=== PATIENT | female | born 1995 | race Caucasian/White ===

== ENCOUNTER 2019-05-23 15:47 | Emergency (ER) | payer MEDICAID, OTHER, SELFPAY ==
[~2019-05-23] VITALS: Ht 160 cm; Wt 91.3 kg
[2019-05-23] MEDS ORDERED: ACET500C10 (15:53)
--- NOTE | 2019-05-23 17:02 | REP ---
Clinical: Right mid calf pain and swelling . Technique: James scale and color Doppler evaluation using linear high frequency transducer. Findings: Ultrasound examination of the right lower extremity deep venous structures from the common femoral vein to the popliteal vein demonstrates normal compressibility flow and wave patterns in response to respiration and augmentation. There is no evidence for deep venous thrombosis. Impression: No evidence for deep venous thrombosis. Electronically Signed by Jonathan Flores MD 05/23/2019 04:54 P
[2019-05-23 17:26] VITALS: BP 170/96
== END 2019-05-23 17:29 | disposition home or self-care (01) ==
LOC: M ED 15:47
DX: M79.604 Pain in right leg (principal); M79.605 Pain in left leg; Z88.1 Allergy status to other antibiotic agents; Z79.899 Other long term (current) drug therapy

== ENCOUNTER → 2019-10-29 | Outpatient (CLI) | payer MEDICAID, OTHER ==
[~2019-10-29] MED LIST: ACET500C10
[2019-10-29 11:26] LABS: BASO % 0.3 % (0.0-1.0); EOS # 0.2 10^3/uL (0.0-0.5); EOS % 1.8 % (0.0-3.0); HEMATOCRIT 42.6 % (36.0-47.0); LYMPH # 2.2 10^3/uL (1.5-5.0); LYMPH % 23.9 % (24.0-44.0); MEAN CORPUSCULAR HEMOGLOBIN 29.7 pg (27.0-33.0); MEAN CORPUSCULAR HGB CONC 32.9 g/dl (32.0-36.5); MEAN CORPUSCULAR VOLUME 90.3 fl (80.0-96.0); MONO # 0.8 10^3/uL (0.0-0.8); MONO % 8.9 % (0.0-5.0); NEUTROPHILS # 5.9 10^3/uL (1.5-8.5); NEUTROPHILS % 64.4 % (36.0-66.0); PLATELET COUNT, AUTOMATED 356 10^3/uL (150-450); RED BLOOD COUNT 4.72 10^6/uL (4.00-5.40); WHITE BLOOD COUNT 9.1 10^3/uL (4.0-10.0)
--- NOTE | 2019-10-29 11:40 | REP ---
REASON: Pain . PRIORS: None. FINDINGS: Three views of the thoracic spine were obtained. The disc spaces are symmetric and relatively well maintained. There is no acute fracture or destructive osseous lesion. Electronically Signed by Toño Mcdowell DO 10/29/2019 12:05 P
[2019-10-29 12:21] LABS: ALBUMIN 3.7 GM/DL (3.2-5.2); ALT/SGPT 39 U/L (12-78); BILIRUBIN,TOTAL 0.3 MG/DL (0.2-1.0); BLOOD UREA NITROGEN 14 MG/DL (7-18); CALCIUM LEVEL 8.8 MG/DL (8.5-10.1); CARBON DIOXIDE LEVEL 21 MEQ/L (21-32); CHLORIDE LEVEL 112 MEQ/L (98-107); CHOLESTEROL LEVEL 199 MG/DL (<200); CHOLESTEROL RISK RATIO 3.553 (<5); CREATININE FOR GFR 0.76 MG/DL (0.55-1.30); GLOMERULAR FILTRATION RATE > 60.0 (>60); GLUCOSE, FASTING 84 MG/DL (70-100); HDL CHOLESTEROL 56 MG/DL (>40); LDL CHOLESTEROL 123 MG/DL (<100); NON-HDL-C 143 MG/DL; POTASSIUM SERUM 4.1 MEQ/L (3.5-5.1); SODIUM LEVEL 139 MEQ/L (136-145); TOTAL PROTEIN 7.7 GM/DL (6.4-8.2); TRIGLYCERIDES LEVEL 102 MG/DL (<150)
== END ==
LOC: M LAB 10:55
PROVIDERS: ATTEND Physician Assistant
DX: M54.6 Pain in thoracic spine (principal); G93.2 Benign intracranial hypertension; D68.51 Activated protein C resistance; R10.84 Generalized abdominal pain; R19.5 Other fecal abnormalities; Z83.49 Family history of other endocrine, nutritional and metabolic diseases

== ENCOUNTER 2020-07-28 22:49 | Day surgery (SDC) | payer OTHER ==
[~2020-07-28] VITALS: Ht 160 cm; Wt 90.1 kg
[~2020-07-28 22:49] MED LIST changes: -ACET500C10; +ACET500C10 PO
[2020-07-29] MEDS ORDERED: NS 1,000 ML IV ONE (01:15)
[2020-07-29] MEDS ORDERED: KETOROLAC 30 MG/ML 1ML VIAL IV ONE (01:15)
[2020-07-29] MEDS ORDERED: ONDANSETRON 4MG/2ML VIAL IV ONE ×2 (01:15→06:30)
[2020-07-29 01:40] LABS: BASO # 0.1 10^3/uL (0.0-0.2); BASO % 0.3 % (0.0-1.0); EOS % 0.2 % (0.0-3.0); HEMATOCRIT 46.9 % (36.0-47.0); HEMOGLOBIN 14.7 g/dl (12.0-15.5); LYMPH # 1.9 10^3/uL (1.5-5.0); LYMPH % 9.9 % (24.0-44.0); MEAN CORPUSCULAR HEMOGLOBIN 28.4 pg (27.0-33.0); MEAN CORPUSCULAR HGB CONC 31.3 g/dl (32.0-36.5); MEAN CORPUSCULAR VOLUME 90.5 fl (80.0-96.0); MONO # 0.9 10^3/uL (0.0-0.8); MONO % 4.9 % (0.0-5.0); NEUTROPHILS # 16.1 10^3/uL (1.5-8.5); NEUTROPHILS % 84.3 % (36.0-66.0); PLATELET COUNT, AUTOMATED 397 10^3/uL (150-450); RED BLOOD COUNT 5.18 10^6/uL (4.00-5.40); WHITE BLOOD COUNT 19.1 10^3/uL (4.0-10.0)
[2020-07-29 02:07] LABS: ALBUMIN 4.4 GM/DL (3.2-5.2); BILIRUBIN,DIRECT 0.1 MG/DL (0.0-0.2); BILIRUBIN,TOTAL 0.6 MG/DL (0.2-1.0); TOTAL PROTEIN 8.7 GM/DL (6.4-8.2)
[2020-07-29] MEDS ORDERED: ISOVUE-370 76% 100ML VIAL As Ordered ONE (02:32)
--- NOTE | 2020-07-29 03:34 | REPVR ---
PROCEDURE INFORMATION: Exam: CT Abdomen And Pelvis With Contrast Exam date and time: 07/29/2020 1:11 AM Age: 24 years old Clinical indication: Abdominal pain; Localized; Right lower quadrant (rlq); Additional info: Rlq pain TECHNIQUE: Imaging protocol: Computed tomography of the abdomen and pelvis with intravenous contrast. Radiation optimization: All CT scans at this facility use at least one of these dose optimization techniques: automated exposure control; mA and/or kV adjustment per patient size (includes targeted exams where dose is matched to clinical indication); or iterative reconstruction. Contrast material: ISO; Contrast volume: 100 ml; Contrast route: INTRAVENOUS (IV); COMPARISON: No relevant prior studies available. FINDINGS: Liver: Normal. No mass. Gallbladder and bile ducts: Normal. No calcified stones. No ductal dilation. Pancreas: Normal. No ductal dilation. Spleen: Normal. No splenomegaly. Adrenal glands: Normal. No mass. Kidneys and ureters: Normal. No hydronephrosis. Stomach and bowel: Unremarkable. No obstruction. No mucosal thickening. Appendix: Fluid-filled distended mildly inflamed appendix. Intraperitoneal space: Trace free fluid in the pelvis. Vasculature: Unremarkable. No abdominal aortic aneurysm. Lymph nodes: Scattered subcentimeter nonspecific mesenteric lymph nodes. Urinary bladder: Unremarkable as visualized. Reproductive: Unremarkable as visualized. Bones/joints: Unremarkable. No acute fracture. Soft tissues: Small fat containing umbilical hernia. Foreign body in the subcutaneous fat along the lower back midline. IMPRESSION: Acute appendicitis. Electronically signed by: Jose Hansen On 07/29/2020 03:34:46 AM
[2020-07-29] MEDS ORDERED: PIPERACILLIN/TAZOBACTAM SOD 3.375 GM in D5W MINI-BAG PLUS 50 ML IV ONE (04:00)
[2020-07-29] MEDS ORDERED: NS 1,000 ML IV SCH (04:00)
[2020-07-29] MEDS ORDERED: MORPHINE 4 MG/ML 1ML VIAL/SYRINGE (J2270) IV PRN (06:30)
[2020-07-29] MEDS ORDERED: BUPIVACAINE HCL 0.25% 30ML VIAL As Ordered ONE (07:55)
[2020-07-29] MEDS ORDERED: fentaNYL 100 MCG/2 ML INJECTION (J3010) As Ordered ONE ×2 (07:55→10:48)
[2020-07-29] MEDS ORDERED: LIDOCAINE 2% 100MG/5ML SDV (FOR ANES.) As Ordered ONE (07:55)
[2020-07-29] MEDS ORDERED: MIDAZOLAM INJ 2MG/2ML VIAL (J2250 PER 1MG) As Ordered ONE (07:55)
[2020-07-29] MEDS ORDERED: ROCURONIUM BROMIDE 50 MG/5 ML VIAL As Ordered ONE (07:55)
[2020-07-29] MEDS ORDERED: propofoL 200 MG/20 ML VIAL As Ordered ONE (07:55)
[2020-07-29] MEDS ORDERED: LIDOCAINE 1% SDV 30ML VIAL As Ordered ONE (07:55)
[2020-07-29] MEDS ORDERED: ONDANSETRON 4MG/2ML VIAL As Ordered ONE (07:55)
[2020-07-29] MEDS ORDERED: dexameTHASONE 4 MG/ML 1ML VIAL (J1100 PER 1MG) As Ordered ONE (07:55)
[2020-07-29] MEDS ORDERED: ONDANSETRON 4MG/2ML VIAL IV PRN ×3 (08:15→12:30)
[2020-07-29] MEDS ORDERED: MORPHINE 2 MG/ML 1ML VIAL (J2270) IV PRN (08:15)
--- NOTE | 2020-07-29 08:23 | HPEPDOC ---
General Surgery H&P Date of Admission Jul 29, 2020 Attending Physician: RAMEZ BINGHAM MD History and Physical CHIEF COMPLAINT: abdominal pain HISTORY OF PRESENT ILLNESS: Patient presents to the ED with complaints of sudden onset of right sided abdominal pain at about 1030 pm last night. Pain started at about 9 PM. She was previously well. She reports pain starting after periumbilical area later on localizing on the right lower quadrant area, sharp in nature, constant, worse with moving, taking deep breaths. Associated with rates of nausea no vomiting. She also had one loose stool. No fevers or chills being reported. No sick contacts. She does presented herself to the emergency room ALLERGIES: Please see below. HOME MEDICATIONS: Please see below. PAST MEDICAL HISTORY: 1. h/o pseudotumor cerebri secondary to adverse reaction for minocycline for acne PAST SURGICAL HISTORY: 1. prior lumboperitoneal shunt and subsequent removal PERSONAL/SOCIAL HISTORY: reports smoking REVIEW OF SYSTEMS: GENERAL: Patient previously well prior to starting her symptoms last night.. HEENT: Denies blurring of vision. NECK: Denies neck pain. CARDIOVASCULAR: Denies chest pain and palpitations. MUSCULOSKELETAL: Reports mild back pain. SKIN: Denies rash. NEUROLOGIC: And history of increasing headaches, migraines from pseudotumor cerebri. PSYCHIATRIC: Denies anxiety and depression. 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 HEART: Denies any chest pains, palpitations, paroxysmal dyspnea, orthopnea. PULMONARY: Denies chronic cough, dyspnea and wheezing. GASTROINTESTINAL: See HPI. GENITOURINARY: Denies dysuria, frequency, hematuria and nocturia. ENDOCRINE: Denies polydipsia, polyphagia, polyuria, heat or cold intolerance. INFECTIOUS: Denies any recent upper respiratory tract infection, UTI, need for use of antibiotics. NUTRITION: Reports good appetite. PHYSICAL EXAMINATION: VITAL SIGNS: Please see below. GENERAL APPEARANCE: Patient seen laying in bed, relatively comfortable. She is awake alert and oriented. She is cooperative. HEENT: Normocephalic, atraumatic. Cogswell palpebral conjunctivae. Anicteric sclerae. Lips moist. CHEST: No chest wall abnormalities. Normal respiratory motion/effort. NECK: Supple. No thyromegaly. No lymphadenopathies. LUNGS: Lung sounds are clear to auscultation bilaterally. No wheezing appreciated. HEART: No chest wall abnormalities. Heart rate and rhythm are regular with no murmurs. ABDOMEN: Mildly obese abdomen, nondistended. Should prior incisions from her lumboperitoneal shunt on the left upper quadrant area. No umbilical or groin herniations. Tender to palpation only on deep palpation over the right lower quadrant area with mild guarding. SKIN: Warm and dry. EXTREMITIES: No deformities, edema. NEUROLOGICAL: Patient is awake alert and oriented, moves all extremities equally. ANCILLARIES: . LABORATORY DATA: Please see below. MICROBIOLOGY: Please see below. IMAGING: Ct abdomen and pelvis fluid filled appendix, acute appendicitis IMPRESSION AND PLAN: Acute appendicitis with localized peritonitis Patient's history, symptoms and physical examination consistent with acute appendicitis. She did have an elevated white count of 19,000. Her CT is consistent with noncomplicated acute appendicitis. We will bring her to the operating room for a laparoscopic appendectomy. I discussed with the patient the details of the proposed procedure, the benefits of performing the procedure, the most common risks on doing the procedure. This may include risks of general anesthesia, risks of bleeding, injury to nearby bowels and blood vessels, subsequent abscess formation, hernia formation. She tells me she has factor V laden trait but has no prior history of DVT. I have given her a chance to ask questions, voice out concerns. Patient has agreed to proceed Vital Signs Vital Signs Date Time Temp Pulse Resp B/P (MAP) Pulse Ox O2 Delivery O2 Flow Rate FiO2 07/29/20 06:38 18 07/29/20 02:37 07/29/20 02:00 97.7 88 97 07/28/20 22:50 Room Air I&Os I&O- Last 24 Hours up to 6 AM 07/29/20 06:00 Intake Total 1000 ml Balance 1000 ml Laboratory Data Labs 24H Laboratory Tests 2 07/29/20 01:58: POC Glucose (Misc Panel) 87, POC Sodium (Misc Panel) 139, POC Potassium (Misc Panel) 3.6, POC Chloride (Misc Panel) 110H, POC Total CO2 (Misc Panel) 18.0L, POC Blood Urea Nitrogen (Misc Panel 13, POC Ionized Calcium (Misc Panel) 4.9, POC Creatinine (Misc Panel) 0.6, POC Hematocrit (Misc Panel) 41.0 07/29/20 02:02: POC Beta HCG, Quantitative < 5.0 Microbiology Microbiology 07/29/20 Respiratory Virus Panel (PCR) ([facility]) - Final, Complete Home Medications Scheduled Acetazolamide (Acetazolamide ER) 500 Mg Capsule.er, 500 MG PO QPM, (Reported) Allergies Coded Allergies: minocycline (Verified Adverse Reaction, Severe, 05/23/19) spinal fluid stopped draining A-FIB/CHADSVASC A-FIB History Current/History of A-Fib/PAF?: No Current PO Anticoag Therapy: No RAMEZ BINGHAM MD Jul 29, 2020 08:23
[2020-07-29] MEDS: AMPICILLIN SOD/SULBACTAM SOD 3 GM in D5W MINI-BAG PLUS 100 ML IV SCH ×3 (10:46→23:20)
[2020-07-29] MEDS ORDERED: SUGAMMADEX SODIUM 500 MG/5 ML VIAL (BRIDION) As Ordered ONE (11:16)
[2020-07-29] MEDS ORDERED: ACETAMINOPHEN 1000MG 100ML IV BTL (OFIRMEV) (J0131 PER 10MG) As Ordered ONE (11:39)
[2020-07-29] MEDS ORDERED: OXYC-517 PO (11:53)
[2020-07-29] MEDS ORDERED: oxyCODONE 5MG TAB PO PRN (12:00)
[2020-07-29] MEDS ORDERED: fentaNYL 100 MCG/2 ML INJECTION (J3010) IV PRN (12:00)
[2020-07-29] MEDS ORDERED: LR 1,000 ML IV SCH (12:00)
[2020-07-29 13:35] VITALS: BP 108/65
[2020-07-29] MEDS: PANTOPRAZOLE 40MG VIAL (C9113 PER 1) IV SCH (13:46)
[2020-07-29] MEDS: LR 1,000 ML IV SCH ×2 (13:46→18:04)
[2020-07-29 14:35] VITALS: BP 106/64
[2020-07-29] MEDS: KETOROLAC 30 MG/ML 1ML VIAL IV PRN ×2 (14:53→23:19)
[2020-07-29] MEDS: PERCOCET 5MG/325MG TAB PO PRN ×2 (17:42→21:44)
[2020-07-29 18:00] VITALS: BP 108/61
[2020-07-29 22:00] VITALS: BP 107/60
[2020-07-30] MEDS: PERCOCET 5MG/325MG TAB PO PRN (03:03)
[2020-07-30] MEDS: LR 1,000 ML IV SCH (03:03)
[2020-07-30] MEDS: AMPICILLIN SOD/SULBACTAM SOD 3 GM in D5W MINI-BAG PLUS 100 ML IV SCH (05:10)
[2020-07-30 06:00] VITALS: BP 109/52
[2020-07-30] MEDS: PANTOPRAZOLE 40MG VIAL (C9113 PER 1) IV SCH (08:40)
--- NOTE | 2020-07-30 08:56 | ROOPDOC ---
[facility] [place] Operation DATE OF PROCEDURE: 07/29/20 PREPROCEDURE DIAGNOSES: acute appendicitis. POSTPROCEDURE DIAGNOSES: acute appendicitis. PROCEDURE: Laparoscopic appendectomy. SURGEON: Freddie Mckeon MD INSTRUCTIONAL COACH: ANESTHESIA: General Anesthesia. ESTIMATED BLOOD LOSS: Approximately 10 mL. COMPLICATIONS: slight blood tinged oral mucosa after extubation. REMARKS: . PROCEDURE NOTE: fluid filled, tensely distended, mildly thickened appendix, no perforation, necrosis DESCRIPTION OF PROCEDURE: Patient has been given a dose of Zosyn perioperatively.Patient was brought to the operating room, placed supine on the table. Sequential compression device placed for DVT prophylaxis. General endotracheal anesthesia started. The abdomen prepped and draped in usual sterile fashion. After a surgical timeout, we began our surgery Entry into the abdomen done through an incision above the umbilicus. Veress needle inserted on a controlled fashion. Intra-abdominal placement confirmed with saline drop technique. CO2 insufflation started to a pressure of 15 mmHg. Using the same incision a 5 mm port was placed under direct vision of laparoscope. Insertion site was inspected for injury and none was found. He was placed on a Trendelenburg position the right side tilted to about 30 to allow for better visualization of the appendix. 2 working ports were placed at the suprapubic area( 8 mm) and left lower quadrant area (5 mm) under direct vision. Operative findings: The appendix is distended, mildly thickened slightly venous congested but otherwise healthy, no necrosis. No perforation. The appendix was located, This was grasped to pull the base of the appendix into view. The mesoappendix was divided using Harmonic scalpel down to the base. A Vicryl Endoloop was placed to ligate the appendix at its base then divided with a Harmonic Scalpel the stump cauterized. Stump appears healthy. Appendix was then delivered into an Endo Catch bag. After re-insufflation the surgical site was inspected for hemostasis, the visualized fluid collections irrigated and suctioned off until clear return. Surrounding areas of the abdomen and inspected for fluid collections or signs of injury. The abdomen was deflated. All ports removed. The umbilical fascial defect repaired with 0 Vicryl in a mattress fashion. All skin incisions closed with 4-0 Monocryl in a subcuticular fashion. Steri-Strips and gauze dressing used for wound coverage. Patient was promptly awake and extubated and brought to recovery room stable. All counts of sponges and instruments verified to be correct. FREDDIE MCKEON MD Jul 30, 2020 08:56
== END 2020-07-30 11:35 | disposition home or self-care (01) ==
LOC: M ED 22:49 → M SDC 22:50 → M MSPAV 07-29 13:22 → M SDC 07-30 11:35
PROVIDERS: ATTEND Surgery
DX: K35.890 Other acute appendicitis without perforation or gangrene (principal); Z88.8 Allergy status to other drugs, medicaments and biological substances; F17.218 Nicotine dependence, cigarettes, with other nicotine-induced disorders
CPT/HCPCS: 44970; 80047; 80076; 81001; 83690; 84702; 85025; 87486; 87581; 87633; 87798; 88304; 96361; 96365; 96366; 96375; 96376; 99284; C9113; J1100; J1885; J2250; J2270; J2405; J2543; J3010; Q9967

== ENCOUNTER 2020-08-02 16:46 | Emergency (ER) | payer OTHER ==
[~2020-08-02] VITALS: Ht 160 cm; Wt 91.2 kg
[~2020-08-02 16:46] MED LIST changes: +OXYC-517 PO
--- OUTSIDE RECORDS SUMMARY | 2020-08-02 16:52 | CCD ---
Author Author [facility] Organization [facility] Address Unknown Phone Unavailable Care Team Providers Care Retail Merchandising Coordinator Name Role Phone GODINEZ, JUSTYNA MERRITT RPA-C Unavailable Unavailable GODINEZ, JUSTYNA MERRITT RPA-C Unavailable Unavailable GODINEZ, JUSTYNA MERRITT RPA-C Unavailable Unavailable GODINEZ, JUSTYNA MERRITT RPA-C Unavailable Unavailable GODINEZ, JUSTYNA MERRITT RPA-C Unavailable Unavailable GODINEZ, JUSTYNA MERRITT RPA-C Unavailable Unavailable GODINEZ, JUSTYNA MERRITT RPA-C Unavailable Unavailable GODINEZ, JUSTYNA MERRITT RPA-C Unavailable Unavailable GODINEZ, JUSTYNA MERRITT RPA-C Unavailable Unavailable GODINEZ, JUSTYNA MERRITT RPA-C Unavailable Unavailable GODINEZ, JUSTYNA MERRITT RPA-C Unavailable Unavailable GODINEZ, JUSTYNA MERRITT RPA-C Unavailable Unavailable GODINEZ, JUSTYNA MERRITT RPA-C Unavailable Unavailable GODINEZ, JUSTYNA MERRITT RPA-C Unavailable Unavailable GODINEZ, JUSTYNA MERRITT RPA-C Unavailable Unavailable GODINEZ, JUSTYNA MERRITT RPA-C Unavailable Unavailable GODINEZ, JUSTYNA MERRITT RPA-C Unavailable Unavailable GODINEZ, JUSTYNA MERRITT RPA-C Unavailable Unavailable GODINEZ, JUSTYNA MERRITT RPA-C Unavailable Unavailable GODINEZ, JUSTYNA MERRITT RPA-C Unavailable Unavailable GODINEZ, JUSTYNA MERRITT RPA-C Unavailable Unavailable GODINEZ, JUSTYNA MERRITT RPA-C Unavailable Unavailable GODINEZ, JUSTYNA MERRITT RPA-C Unavailable Unavailable GODINEZ, JUSTYNA MERRITT RPA-C Unavailable Unavailable GODINEZ, JUSTYNA MERRITT RPA-C Unavailable Unavailable GODINEZ, JUSTYNA MERRITT RPA-C Unavailable Unavailable GODINEZ, JUSTYNA MERRITT RPA-C Unavailable Unavailable GODINEZ, JUSTYNA MERRITT RPA-C Unavailable Unavailable GODINEZ, JUSTYNA MERRITT RPA-C Unavailable Unavailable GODINEZ, JUSTYNA MERRITT RPA-C Unavailable Unavailable GODINEZ, JUSTYNA MERRITT RPA-C Unavailable Unavailable GODINEZ, JUSTYNA MERRITT RPA-C Unavailable Unavailable GODINEZ, JUSTYNA MERRITT RPA-C Unavailable Unavailable GODINEZ, JUSTYNA MERRITT RPA-C Unavailable Unavailable GODINEZ, JUSTYNA MERRITT RPA-C Unavailable Unavailable GODINEZ, JUSTYNA MERRITT RPA-C Unavailable Unavailable GODINEZ, JUSTYNA MERRITT RPA-C Unavailable Unavailable GODINEZ, JUSTYNA MERRITT RPA-C Unavailable Unavailable Pedro, A Mayra MEDICAL PRACTITIONERS Unavailable Unavailable Pedro, A Mayra [employer]ACTITION[employer] Unavailable Unavailable Pedro, A [facility] [employer]ACTITION[employer] Unavailable Unavailable Pedro, A Mayra [employer]ACTITION[employer] Unavailable Unavailable Pedro, A [facility]ra [employer]ACTITION[employer] Unavailable Unavailable Pedro, A Mayra [employer]ACTITION[employer] Unavailable Unavailable Pedro, A Mayra [employer]ACTITION[employer] Unavailable Unavailable Pedro, A Mayra [employer] PRACTITIONERS Unavailable Unavailable Pedro, A [facility]ra [employer]ACTITIONERS Unavailable Unavailable Pedro, A Mayra [employer]ACTITION[employer] Unavailable Unavailable Pedro, A Mayra [employer]ICAL PRACTITIONERS Unavailable Unavailable Pedro, A Mayra [employer]ICAL PRACTITIONERS Unavailable Unavailable Pedro, A Mayra [employer] PRACTITIONERS Unavailable Unavailable Pedro, A Mayra [employer]ACTITIONERS Unavailable Unavailable Pedro, A Mayra [employer]ACTITION[employer] Unavailable Unavailable Pedro, A Mayra [employer]ACTITION[employer] Unavailable Unavailable Pedro, A Mayra [employer]ACTITIONERS Unavailable Unavailable Pedro, A [facility]ra [employer]ACTITION[employer] Unavailable Unavailable Pedro, A Mayra [employer]ACTITION[employer] Unavailable Unavailable Pedro, A Mayra [employer]ACTITION[employer] Unavailable Unavailable Pedro, A Mayra [employer]ACTITION[employer] Unavailable Unavailable Pedro, A Mayra [employer] PRACTITION[employer] Unavailable Unavailable Pedro, A Mayra [employer]ACTITION[employer] Unavailable Unavailable Pedro, A [facility] [employer] Unavailable Unavailable Pedro, A [facility]ra [employer] Unavailable Unavailable Pedro, A [facility] [employer] Unavailable Unavailable Pedro, A [facility] [employer] Unavailable Unavailable Jesusita MENDOZA Unavailable Unavailable Pedro, Mayra [facility] [employer] MEDICAL PRACTITIONERS Unavailable Unavailable JONATHANAnderson FONTANAJesusita . Unavailable Unavailable [facility], RFROST GODINEZ PA MERRITT Unavailable Unavailable Guiles, Kayli Unavailable Unavailable Rocha, Navreet MBBS Unavailable Rocha, Navreet MBBS Unavailable Re-disclosure Warning The records that you are about to access may contain information from federally-assisted alcohol or drug abuse programs. If such information is present, then the following federally mandated warning applies: This information has been disclosed to you from records protected by federal confidentiality rules (42 CFR part 2). The federal rules prohibit you from making any further disclosure of this information unless further disclosure is expressly permitted by the written consent of the person to whom it pertains or as otherwise permitted by 42 CFR part 2. A general authorization for the release of medical or other information is NOT sufficient for this purpose. The Federal rules restrict any use of the information to criminally investigate or prosecute any alcohol or drug abuse patient.The records that you are about to access may contain highly sensitive health information, the redisclosure of which is protected by Article 27-F of the [facility] Public Health law. If you continue you may have access to information: Regarding HIV / AIDS; Provided by facilities licensed or operated by the [facility] Office of Mental Health; or Provided by the [facility] Office for People With Developmental Disabilities. If such information is present, then the following [facility] mandated warning applies: This information has been disclosed to you from confidential records which are protected by state law. State law prohibits you from making any further disclosure of this information without the specific written consent of the person to whom it pertains, or as otherwise permitted by law. Any unauthorized further disclosure in violation of state law may result in a fine or long-term sentence or both. A general authorization for the release of medical or other information is NOT sufficient authorization for further disc losure. Allergies and Adverse Reactions Type Description Substance Reaction Status Data Source(s ) Drug allergy MINOCYCLINE HCL Minocycline 100 MG Oral Capsule CSF re tention SV [facility] Miscellaneous allergy SEASONAL SEASONAL [facility] Family History Family Member Name Family Member Gender Family Member Status Date o f Status Description Data Source(s) Unknown Male Diagnosis 01/13/2018 12:00:00 AM EDT [facility] ([employer] [facility]) Encounters Encounter Providers Location Date Indications Data Source(s ) Outpatient Referrer: MICAH MENDOZA 06/16/2020 12:00:00 A M [facility] Outpatient Attender: Destiny TOSCANO [id number] 10/2019 12:00:00 AM EDT - 03/24/2020 03:47:07 PM EDT Benign intracranial hypertension [facility] Benign intracranial hypertension [facility]patient [facility] 02/14/2020 05:16:00 P M EDT [facility]patient [facility]: [facility] 02/14/2020 05:1 5:59 PM EDT [facility] Outpatient Att[facility]: [facility] 01/11/2020 01:13:00 P M EDT [facility] Outpatient Att[facility]: [facility] 12/02/2019 03:1 2:01 PM EDT [facility] Outpatient Attender: [facility] 12/02/2019 02:15:01 P M EDT [facility] Outpatient Attender: WILMA DILLON 12/02/2019 02:14:00 P M EDT [facility] Outpatient Attender: WILMA DILLON 11/25/2019 11:25:00 A M EDT [facility] Outpatient 11/24/2019 06:24:00 AM EDT [facility] Outpatient Attender: MERRITT [facility]AR[facility]AS [facility] 11/18/2019 03:02:00 PM EDT [facility] 03:01:01 PM EDT [facility] 10/20 10:02:01 AM EDT [facility] Outpatient Attender: SCOOBY [facility] 10/20 02:35:02 PM EDT [facility] Outpatient Attender: MERRITT FARIAS [facility] 11/09/2019 02:35:00 PM EDT [facility] Outpatient Attender: SCOOBY [facility] 10/19 04:29:00 PM EDT [facility] Outpatient Attender: SOCOBY [facility] 10/19 04:27:01 PM EDT [facility] Outpatient Attender: SCOOBY [facility] 10/19 04:12:01 PM EDT [facility] Outpatient Attender: SCOOBY ROS[facility]IN [facility] 09/20 03:50:00 PM EDT [facility] Outpatient Attender: MERRITT FARIAS [facility] 10/16/2019 12:00:40 AM EDT [facility] Outpatient Attender: MERRITT F[facility]AS [facility] 10/15/2019 04:22:02 PM EDT [facility] Outpatient Attender: CURRY PATEL . 09/14/2019 12:00:00 AM [facility] Outpatient Attender: Kayli WILSON 06/23/2019 02:05:00 PM ES [facility] Out[facility] 06/20/2019 03:19:[facility] Medications Medication Brand Name Start Date Product Form Dose Route Admi nistrative Instructions Pharmacy Instructions Status Indications Reaction Description Data Source(s) 12 HR Acetazolamide 500 MG Extended Rele ase Oral Capsule acetaZOLAMIDE ER 500 MG Oral Capsule Extended Release 12 Hour (DIAMOX) acetaZOLAMIDE ER 500 MG Oral Capsule Extended Release 12 Hour (DIAMOX) 03/24/2020 12:00:00 AM EDT 500 mg Oral active Take 1 capsule by mo [facility] every evening [facility] 12 HR Acetazolamide 500 MG Extended Rele ase Oral Capsule acetaZOLAMIDE ER 500 MG Oral Capsule Extended Release 12 Hour (DIAMOX) acetaZOLAMIDE ER 500 MG Oral Capsule Extended Release 12 Hour (DIAMOX) 02/21/2020 12:00:00 AM EDT 500 mg Oral aborted Take 1 capsule by mo [facility] every evening [facility] Insurance Providers Payer name Policy type / Coverage type Policy ID Covered green party ID Covered green party's relationship to raphael Policy Raphael Plan Information NINO [id number] SP [id number] NINO I [id number] Self [id number] [place] [id number] S [id number] Medicaid S [id number] S [id number] Managed Care Nino P [id number] S [id number] Medicaid Dental S [id number] S [id number] MEDICAID [id number] SP [id number] Medicaid Dental P [id number] S [id number] SELF PAY O [id number] S [id number] SELF PAY ONLY [id number] SP [id number] NINO [id number] SP [id number] NINO MEDICAID [id number] Joselin 7 [id number] NINO MEDICAID PI PI DENTAL DENTAQUEST CHRISTO [id number] A [id number] Nino [id number] Self [id number] Problems, Conditions, and Diagnoses Code Display Name Description Problem Type Effective Dates Data Source(s) E55.9 Vitamin D deficiency, unspecified Vitamin D deficiency , unspecified 02/14/2020 05:15:38 PM EDT [facility] 724.1 Acute thoracic back pain Acute thoracic back pain 11/18/2019 03:00:20 PM EDT [facility] G54.0 Brachial plexus disorders Left thoracic outlet syndrom e 11/18/2019 03:00:20 PM EDT [facility] 348.2 Benign intracranial hypertension Benign intracranial h ypertension 10/15/2019 04:20:13 PM EDT [facility] 289.81 Factor V Leiden mutation Factor V Leiden mutation 10/15/2019 04:20:13 PM EDT [facility] 724.1 Pain in thoracic spine Pain in thoracic spine 10/15/2019 04:20:13 PM EDT [facility] V18.19 FH: Thyroid disorder FH: Thyroid disorder 10/14 04:20:13 PM EDT [facility] R10.84 Generalized abdominal pain Generalized abdominal pain 10/15/2019 04:20:13 PM EDT [facility] R19.5 Other fecal abnormalities Soft stool 10/15/2019 04:20:13 PM EDT [facility] Results ID Date Data Source [id number] 07/29/2020 04:40:00 AM EST [facility] Name Value Range Interpretation Code Description Data Tatum rce(s) Supporting Document(s) SARS-CoV-2 (COVID 19) NEGATIVE - SARS-CoV-2 (COVID19) [facility] This lab was ordered by [facility] a nd reported by [facility]. ID Date Data Source [id number] 06/17/2020 12:00:00 AM EST [facility] Name Value Range Interpretation Code Description Data Tatum rce(s) Supporting Document(s) SARS-CoV2 Rapid Antigen [facility] This lab was ordered by [facility] and reported by [facility]. ID Date Data Source [id number] 04/17/2020 01:45:21 PM EDT [facility] Name Value Range Interpretation Code Description Data Tatum rce(s) Supporting Document(s) Progress Note [facility] GPJJSd7eVgUCUgLm12/HBZcoFCLxo0TrVRsaEJz6BRkpVHVkP7MuMPW4oV3mFDP5SJeZOxUtKmPlWVX7 lbm [file] ICAgICAgICAgICAgICAgICAgICAgICAgICAgICAgIC AgICAgICAgICAgICAgICAgICAgICAgICAgICAgICAgICAgICAgICAgICAgICAgICAgICAgICAgICAgDQ ogICAgICAgICAgICAgICAgICAgICAgICAgICAgICAgICAgICAgICAgICAgICAgICAgICAgICAgICAgIC AgICAgICAgICAgICAgICAgICAgICAgICAgICAgICAg ICAgICAgICAgDQogICAgICAgICAgICAgICAgICAgICAgICAgICAgICAgICAgICAgICAgICAgICAgICAg ICAgICAgICAgICAgICAgICAgICAgICAgICAgICAgICAgICAgICAgICAgICAgICAgICAgDQogICAgICAg ICAgICAgICAgICAgICAgICAgICAgICAgICAgICAgIC AgICAgICAgICAgICAgICAgICAgICAgICAgICAgICAgICAgICAgICAgICAgICAgICAgICAgICAgICAgIC AgDQogICAgICAgICAgICAgICAgICAgICAgICAgICAgICAgICAgICAgICAgICAgICAgICAgICAgICAgIC AgICAgICAgICAgICAgICAgICAgICAgICAgICAgICAg ICAgICAgICAgICAgDQogICAgICAgICAgICAgICAgICAgICAgICAgICAgICAgICAgICAgICAgICAgICAg ICAgICAgICAgICAgICAgICAgICAgICAgICAgICAgICAgICAgICAgICAgICAgICAgICAgICAgDQogICAg ICAgICAgICAgICAgICAgICAgICAgICAgICAgICAgIC AgICAgICAgICAgICAgICAgICAgICAgICAgICAgICAgICAgICAgICAgICAgICAgICAgICAgICAgICAgIC AgICAgDQogICAgICAgICAgICAgICAgICAgICAgICAgICAgICAgICAgICAgICAgICAgICAgICAgICAgIC AgICAgICAgICAgICAgICAgICAgICAgICAgICAgICAg ICAgICAgICAgICAgICAgDQogICAgICAgICAgICAgICAgICAgICAgICAgICAgICAgICAgICAgICAgICAg ICAgICAgICAgICAgICAgICAgICAgICAgICAgICAgICAgICAgICAgICAgICAgICAgICAgICAgICAgDQog ICAgICAgICAgICAgICAgICAgICAgICAgICAgICAgIC AgICAgICAgICAgICAgICAgICAgICAgICAgICAgICAgICAgICAgICAgICAgICAgICAgICAgICAgICAgIC TmUMMxCNBtBXe4E4zaBCQxZALoIA8qRMf9An0+ZJpHWaDzJJU9biJlvA8ZVR0mz0JqUAdcESPei3TgZI z7ZS5XHJAzBVemQI0TWZixqk6OWNIoBKTjeITWg5zx WhHjJTS2MNYhJmwvCU8NUPFsF5qvxtFiWZRvWEZPZWnzLBRXTDizDNJNVRNiKYHaMyUsOyAtVPUkVCRo AYOHJH3YDgPiU9GynG66EJXOTy9+OMkpnmHsSixOSoIrQSXyi2OrJZd2RY5VRVDgOajod8HjHfKnZZLQ VRudNY5JIKA5WMPpYSKsCj0PKNClH900onPkQC0NQl 2XFcSiMS3sfa0AQpBzQIEwZplMIlk4RNkvGL1VcHYgKMnClh6vtgFcvkUCj2WdlbFjtMGIPOQcKTG0TY ibaZJeKS2QYpQoXJGtJK25IuEaVjKdBSA7AHSfWQ0pJTpsYV4NXXH5XKjxMYEzKHEzH9tIRdZaXBXaMU KpmJsfDJ2UKxDiK9MlwhNmnSBhIaVdKMWVNo7+DQpl iwYaMuyAXeY9HFIsm0NjYOs3GC6XDBKgTMrpOD2IPTSsdS6sWDjqBW7SHpDkQYUrLXJNHxXlK90zzZCp LIf9P2JuApKfGGTkDwkmBDVcVXobOpVvIPQmRfYgCJssNW4+ID4+HCowAJ0UBDtjfqJeRNKvMy4ISEKc HKLrDN7uEHXoYQDtM1Q6sDzxHDUDEuJuD2zqrygtMY 4fIJNvQ699fTliyeUnNNKlTBBbWq8LAQCfCJE1PSXrgSEtEwMiPYFCTZpvRH0DsQXjAXZ1fB7hKTooHZ OrYRRiU7hMGqPaqIfwIG61oNpxaoHbgRXgASy+Wg2BGY2ze0EyRCi6rpLkEDmrGJK4ZBuoTQMxQWPjXK OpBSQ3OMH1YLYRCtDgGXIlFNScHRhnQCMtCRTftv2P YOCtHLSrLBS1SzQdKFUoFULaPSuiKRVlLIW7KWI9NGItCILjFJ6WUaEiYESkUICzKNcbPWJaXMIggr5F QRHcJZQlNIQ4DUMzQMWdJAVnNGtxYBFcSWM5ImrdKFQxVMZhVL6VJgZhPRDiZGdmUuydRYKhVDYgwe0U FVBaIHScQpQgOxJzDZQqQJQhEZbaLPQfWJX6VEB6IA MdZIScJC8FKdUfJKTgQDq6XcVlKTVtZAIluh1PYJMtPKAcHnM9IoMaRYRhDQLzQApoUEMwGOBySAYuLA DtXKNxCA7TLjQbVNMoMXL1TsFaCKVyQXVwpc1JRQAjFAOoAtulCZZrOFAfKKLmSMowNILoJUO0Gln4RE WpVQOhCK3WYzLlTRBlJUl4ECNkTCFfYGFbom0GKHDz HGBjFAt4GYYxAMGiRVIqTWdbPUNeMNB4FMA1PJOjWGXkTS5STfGqYFWkGAfoICZyJTJeQHLofa6ZCFAa JUAoVGJbLTEzELJfBYLvLIfaJWImICDqVGBlUOHpMNRpHH5CPbMaBLIhFwL8ZIQaUQXhBJQuei8CNJAe RRAmCwRiKFVlXSQhZACzZZquNGGbLKBfYuO9RYKgCE XqXF0MOcVgLBOsCdF6ITSgLDWhXSJvwo8TIVOoNFFbThbxERDuVABdQIKwERimCKMiRQOyLHNqHZQfFG HqYW2QLtMrFBKoLcO5CCOqCFMzOLYafs1WGBMwTEInJOV1YzClUJCqGUGfQCmiYJUgOFV6WtOsIOWoDU UzNF8KWhShSJZrNgI7SpbwFPIjXEArni5XYNZcCUWd GhU1HFRgBPZiCSWlPTicKAZuNZD9YgH3UPMwTOIzOS3OIbXePPHpAcBcIdliAKLkGFXylh4WrNUdvRvo hv9NENoHAj4McFbzTTH6KQqeFo7sdRQrSWGdIDEUTw2BboOsBYXxUCFUPDtnVXOzKPYzALUxDXM6CmAt UJOfX1S6ExAbDePeUyBrCwtfKfN7YmG3InCgOWM3OT teFRG2OoVaStv2T7QtIBNcL2BbPQDlYWD+GR1mONr+Rs9Jc1QsvvR2rlNnVQzoHsYwYD6BYOILG6AGXk == ID Date Data Source [id number] 12/02/2019 02:35:17 PM EDT [facility] Measurements & CalculationsHeight: 63 inches (5 ft. 3 in.) 160.02 cm Weight: 208 pounds 4 oz. 94.66 kg Body Mass Index (BMI): 37.02BMI Interpretation: ObeseBody Surface Area (BSA): 1.97Weight Management Education Done (Nutrition/Physical Activity)Vital SignsTemperature: 99.2F tympanic Pulse Rate: 81 beats/minuteRespi ratory Rate: 18 respirations/minuteBlood Pressure: 117/87 left arm sitting automaticO2 Saturation: 95% room airVital Signs performed by: Jesus Alberto Atwood MA, December 02, 2019 2:52 PMInitial Intake Information From: patientRoom #: 14Infectious Disease / Travel ScreeningRecent travel for you or any close contacts? NoHave you had any close contact with anyone diagnosed with or under investigation for COVID-19 (coronavirus)? NoFever? NoRespiratory symptoms: cough, cold, congestion, shortness of breath, difficulty breathing? NoLoss of smell? NoLoss of taste? NoSmoking, Tobacco, Vaping or Smoke Exposure StatusSmoke Status: never smokerTobacco Use: NoDo you vape? NoPassive Smoke Exposure: NoMenstrual HistoryLast Menstrual Period (LMP): 11/10/2019Any possibility of ? NoHealthcare HistorySince your last office visit...Have you been admitted to the hospital? NoHave you been to an emergency room (ER) or urgent care clinic? NoHave you seen another healthcare provider? NoHave you seen a dentist? NoIntake performed by: Jesus Alberto Atwood MA, December 02, 2019 2:39 PMRate Your HealthIn general, would you say your health is? GoodPain AssessmentAre you currently having any pain which... You would like your provider to address? Yes Affects your activity level? YesDepression Screening - PHQ-2Over the last two weeks, have you... Had little interest or pleasure in doing things? Nearly every day Been feeling down, depressed, or hopeless? More than half the days PHQ-2 Score: 5Anxiety Screening - APOLLO-2Over the last two weeks, have you been... Feeling nervous, anxious, or on edge? More than half the days Unable to stop or control worrying? More than half the days APOLLO-2 Score: 4Food InsecurityWithin the past year...Did you worry whether your food would run out before you got money to buy more? NoWas there a time when the food you bought didn't last and you didn't have money to get more? NoGeneralized Anxiety Disorder 7-Item Screening (APOLLO-7)Answer Guide:0 = Not at all1 = Several days2 = Over half the days3 = Nearly every dayOver the last 2 weeks, how often have you been bothered by the following problems?Feeling nervous, anxious, or on edge: 2Not being able to stop or control worryinWorrying too much about different things: 3Trouble relaxinBeing so restless that it's hard to sit still: 1Becoming easily annoyed or irritable: 1Feeling afraid as if something a wful might happen: 1Answer Guide:0 = Not difficult at all1 = Somewhat difficult2 = Very difficult3 = Extremely difficultHow difficult have these made it for you to do your work, take care of things at home, or get along with other people? 1GAD-7 Screening Results APOLLO-2 Score: 4GAD-7 Score: 13Functional Impairment: Somewhat difficultRecommendation: Moderate anxietyPHQ-9 1. Over the last 2 weeks, patient reports the following frequency of symptoms: a. Little interest or pleasure in doing things -Nearly every day b. Feeling down, depressed, or hopeless -More than half the days c. Trouble falling asleep, staying asleep, or sleeping too much -Nearly every day d. Feeling tired or having little energy -Nearly every day e. Poor appetite or overeating -Nearly every day f. Feeling bad about yourself, feeling that you are a failure, or feeling that you have let yourself or your family down -Several days g. Trouble concentrating on things such as reading the newspaper or watching television -Several days h. Moving or speaking so slowly that other people could have noticed. Or being so fidgety or restless that you have been moving around a lot more than usual -Not at all i. Thinking that you would be better off or that you want to hurt yourself in some way -Not at all2. If you checked off any problems, how difficult have these problems made it for you to do your work, take care of things at home, or get along with other people? -Somewhat DifficultToday's PHQ-9 Results Score: 16 Severity: Moderately Severe Diagnosis Recommendation: Major Depression Functional Impairment: Somewhat DifficultPain AssessmentPain ScaleNumeric Rating Scale: 6 / 10Location: backDuration: 4 monthsFrequency: DailyCharacter/Quality: aching, burning and sharpIs the pain radiating? NoScreening, Brief Intervention, & Referral to Treatment (SBIRT)Pre-Screening Questions How many times have you have 4 or more drinks in a day? 0How many times have you used an illegal drug or used a prescription medication for a non-medical reason? 0Performed by: Jesus Alberto Atwood MA, December 02, 2019 2:45 PMPatient History Medical History:Pseudotumor Ceribri from minocycline-on DiamoxSurgical History:lumbar shunt placed/removed-minocycline allergyoral surgeryFamily History:maternal Fx diabetesFather with thyroid and Factor V leidenSocial/Personal History: Chief Complaintback pain RM 14 History of Present Illness (HPI)24 yr old female PT here today with complaints of back pain. Pt was last seen on 11/18/2019. Pt states she is having neck pain on the right side. and lower back pain. Pt states the pain is primarily on the right side. Pt did not get her orphenadrine.Pain increased gradually.Problem ReviewProblem List was reviewed and/or updated during this visit.Medication Reconciliation & ReviewMedication List was reviewed and/or updated during this visit, including review of any dghi-mvy-rnnrodp medications, herbal therapies, and/or supplements.Allergy ReviewAllergy List was reviewed and/or updated during this visit.Adult Preventive CareProvider Calculated and Reviewed all Clinical Protocols for patient today. Labs/Meds/Other Counseling-Nutrition and Physical Activity:BMI Interpretation: Obese (12/02/2019) Counseling: Done (12/02/2019) Physical Activity: Done (12/02/2019)Review of Systems General: Denies loss of appetite, chills, dizziness, fatigue, fever, continued fever, headache, feeling ill, sweats, night sweats, sleep disturbances, weight loss. Cardiovascular: Denies chest pain, palpitations, feeling faint, trouble breathing w/exertion, SOB upon lying down, SOB at night, peripheral edema, elevated blood pressure, decreased heart rate. Respiratory: Denies cough, difficulty breathing, shortness of breath, excessive sputum, coughing up blood, wheezing, chest pain. Musculoskeletal: Complains of back pain. Physical ExamGeneral Appearance: well nourished, well hydrated, no acute distressGait & Station: normalHead & Neck: C2-4 left, 1st rib, T2-5, L4-5 on rightOrientation: oriented to time, place, and personMood & Affect: no depression, anxiety, or agitationJudgment & Insight: intactRate Your HealthIn general, would you say your health is? GoodAssessment & Plan Problems:Assessed:Acute thoracic back pain (ICD-724.1) (KWW27-L37.6) Assessment: OMTLeft thoracic outlet syndrome (GJI17-Z25.0) Assessment: OMTAssessment not SavedPain in thoracic spine (XHD81-C63.6): OMTMedications:CY CLOBENZAPRINE HCL 10 MG ORAL TABLETORPHENADRINE CITRATE ER 100 MG ORAL TABLET EXTENDED RELEASE 12 HOURTYLENOL 8 HOUR 650 MG ORAL TABLET EXTENDED RELEASEACETAZOLAMIDE ER 500 MG ORAL CAPSULE EXTENDED RELEASE 12 HOURMedication Changes:New Prescription:CYCLOBENZAPRINE HCL 10 MG ORAL TABLET-one tab po TID prn muscle spasm Qty: 30[Tablet] Refills: 1 Method: ElectronicAllergies:MINOCYCLINE HCL (MINOCYCLINE HCL) (Critical)* SEASONAL (Critical)Orders:Adult - Ofc Vst, EST, Level III [CPT-39058] Medications:CYCLOBENZAPRINE HCL 10 MG ORAL TABLET (CYCLOBENZAPRINE HCL) one tab po TID prn muscle spasm #30[Tablet] x 1 Route:ORAL Entered and Authorized by: Asa Moon DO Method used: Electronically to [facility] [phone]* (retail) [id number] [place] [id number] Note to Pharmacy: Route: ORAL; RxID: [id number] signed by Asa Moon DO on 12/02/2019 at 3:11 PM Name Value Range Interpretation Code Description Data Tatum rce(s) Supporting Document(s) ID Date Data Source [id number] 11/18/2019 02:03:47 PM EDT [facility] Measurements & CalculationsHeight: 63 inches (5 ft. 3 in.) 160.02 cm Weight: 209 pounds 95 kg Body Mass Index (BMI): 37.16BMI Interpretation: ObeseBody Surface Area (BSA): 1.97Weight Management Education Done (Nutrition/Physical Activity)Vital SignsTemperature: 98.3F oral Pulse Rate: 83 beats/minuteRespiratory Rate: 18 respirations/minuteBlood Pressure: 120/79 left arm sitting automaticO2 Saturation: 96% room airVital Signs performed by: Jesus Alberto Atwood MA, November 18, 2019 2:32 PMInitial Intake Information From: patientRoom #: 12Infectious Disease / Travel ScreeningRecent travel for you or any close contacts? NoHave you had any close contact with anyone diagnosed with or under investigation for COVID-19 (coronavirus)? NoFever? NoRespiratory symptoms: cough, cold, congestion, shortness of breath, difficulty breathing? NoLoss of smell? NoLoss of taste? NoSmoking, Tobacco, Vaping or Smoke Exposure StatusSmoke Status: never smokerTobacco Use: NoDo you vape? NoPassive Smoke Exposure: NoMenstrual HistoryLast Menstrual Period (LMP): 11/10/2019Any possibility of ? NoHealthcare HistorySince your last office visit...Have you been admitted to the hospital? NoHave you been to an emergency room (ER) or urgent care clinic? NoHave you seen another healthcare provider? NoHave you seen a dentist? NoIntake performed by: Jesus Alberto Atwood MA, November 18, 2019 2:12 PMRate Your HealthIn general, would you say your health is? GoodPain AssessmentAre you currently having any pain which... You would like your provider to address? Yes Affects your activity level? YesDepression Screening - PHQ-2Over the last two weeks, have you... Had little interest or pleasure in doing things? Nearly every day Been feeling down, depressed, or hopeless? Nearly every day PHQ-2 Score: 6Anxiety Screening - APOLLO-2Over the last two weeks, have you been... Feeling nervous, anxious, or on edge? Nearly every day Unable to stop or control worrying? More than half the days APOLLO-2 Score: 5Food InsecurityWithin the past year...Did you worry whether your food would run out before you got money to buy more? NoWas there a time when the food you bought didn't last and you didn't have money to get more? NoGeneralized Anxiety Disorder 7-Item Screening (APOLLO-7)Answer Guide:0 = Not at all1 = Several days2 = Over half the days3 = Nearly every dayOver the last 2 weeks, how often have you been bothered by the following problems?Feeling nervous, anxious, or on edge: 3Not being able to stop or control worryinWorrying too much about different things: 2Trouble relaxinBeing so restless that it's hard to sit still: 1Becoming easily annoyed or irritable: 1Feeling afraid as if something awful might happen: 2Answer Guide:0 = Not difficult at all1 = Somewhat difficult2 = Very difficult3 = Extremely difficultHow difficult have these made it for you to do your work, take care of things at home, or get along with other people? 2GAD- 7 Screening Results APOLLO-2 Score: 5GAD-7 Score: 14Functional Impairment: Very difficultRecommendation: Moderate anxietyPHQ-9 1. Over the last 2 weeks, patient reports the following frequency of symptoms: a. Little interest or pleasure in doing things -Nearly every day b. Feeling down, depressed, or hopeless -Nearly every day c. Trouble falling asleep, staying asleep, or sleeping too much - Nearly every day d. Feeling tired or having little energy -Nearly every day e. Poor appetite or overeating -Nearly every day f. Feeling bad about yourself, feeling that you are a failure, or feeling that you have let yourself or your family down -Several days g. Trouble concentrating on things such as reading the newspaper or watching television -Nearly every day h. Moving or speaking so slowly that other people could have noticed. Or being so fidgety or restless that you have been moving around a lot more than usual -More than half the days i. Thinking that you would be better off or that you want to hurt yourself in some way - Several days2. If you checked off any problems, how difficult have these problems made it for you to do your work, take care of things at home, or get along with other people? -Very DifficultToday's PHQ-9 Results Score: 22 Severity: Severe Diagnosis Recommendation: Major Depression Functional Impairment: Very DifficultPain AssessmentPain ScaleNumeric Rating Scale: 6 / 10Location: mid to upper back Duration: 3-4 months Frequency: DailyCharacter/Quality: aching and sharpIs the pain radiating? NoScreening, Brief Intervention, & Referral to Treatment (SBIRT)Pre-Screening Questions How many times have you have 4 or more drinks in a day? 0How many times have you used an illegal drug or used a prescription medication for a non-medical reason? 0Performed by: Jesus Alberto Atwood MA, November 18, 2019 2:21 PMPatient History Medical History:Pseudotumor Ceribri from minocycline-on DiamoxSurgical History:lumbar shunt placed/removed-minocycline allergyoral surgeryFamily History:maternal Fx diabetesFather with thyroid and Factor V leidenSocial/Personal History: Chief Complaintback pain RM 12History of Present Illness (HPI)24 yr old female Pt is here today for back pain X 2 months. Pt denies falls/trauma. She did switch beds. Pt has been taking medications with no side effects or issues. Pt had NPH with a TRAINING ENGINEER shunt a few years ago.Problem ReviewProblem List was reviewed and/or updated during this visit.Medication Reconciliation & ReviewMedication List was reviewed and/or updated during this visit, including review of any qlct-kmb-faearwv medications, herbal therapies, and/or supplements.Allergy ReviewAllergy List was reviewed and/or updated during this visit.Adult Preventive CareProvider Calculated and Reviewed all Clinical Protocols for tunde jones today. Labs/Meds/Other Counseling-Nutrition and Physical Activity:BMI Interpretation: Obese (11/18/2019) Counseling: Done (11/18/2019) Physical Activity: Done (11/18/2019)Cancer Screening Pap Smear/HPV TestingReviewed: Previous Comments: never had one (10/15/2019)Today's Comments: Pt would like a referral Review of Systems General: Denies loss of appetite, chills, dizziness, fatigue, fever, continued fever, headache, feeling ill, sweats, night sweats, sleep disturbances, weight loss. Musculoskeletal: Complains of back pain. Neurologic: Complains of numbness/tingling. Physical ExamGeneral Appearance: well nourished, well hydrated, no acute distressRespiratory, Auscultation: clear to auscultation bilaterally; no rales, rhonchi, or wheezesCardiovascular, Auscultation: S1, S2 audible; no murmur, rub, or gallop; RRRGait & Station: normalHead & Neck: C2-4 on leftBack: 1st rib, T2-4 on left, T4-6 on the rightOrientation: oriented to time, place, and personMood & Affect: no depre ssion, anxiety, or agitationJudgment & Insight: intactRate Your HealthIn general, would you say your health is? GoodAssessment & Plan Problems:Added: Left thoracic outlet syndrome (GKY73-G65.0)Acute thoracic back pain (ICD-724.1) (PXV22-A51.6)Medications:ORPHENADRINE CITRATE ER 100 MG ORAL TABLET EXTENDED RELEASE 12 HOURTYLENOL 8 HOUR 650 MG ORAL TABLET EXTENDED RELEASEACETAZOLAMIDE ER 500 MG ORAL CAPSULE EXTENDED RELEASE 12 HOURMedication Changes:Added: TYLENOL 8 HOUR 650 MG ORAL TABLET EXTENDED RELEASE-2 tab PO Q6HNew Prescription:ORPHENADRINE CITRATE ER 100 MG ORAL TABLET EXTENDED RELEASE 12 HOUR-one tab po BID prn spasm Qty: 30[Tablet] Refills: 1 Method: ElectronicAllergies:MINOCYCLINE HCL (MINOCYCLINE HCL) (Critical)* SEASONAL (Critical)Orders:Adult - Ofc Vst, EST, Level III [CPT-22600] Medications:ORPHENADRINE CITRATE ER 100 MG ORAL TABLET EXTENDED RELEASE 12 HOUR (ORPHENADRINE CITRATE) one tab po BID prn spasm #30[Tablet] x 1 Route:ORAL Entered and Authorized by: Asa Moon DO Method used: Electronically to [facility] 6163* (trhvem) [id number] [place] [id number] Note to Pharmacy: Route: ORAL; RxID: [id number] Administered/Entered:Vaccination Group: InfluenzaSeries: 1 NOT GIVENVaccination: Flucelvax Quadrivalent PF (4y+) AdultReason Not Given: Patient decisionEntered Date: 11/18/2019 12:00 AMComments: Pt refusedEntered by: Jesus Alberto Atwood MA Name Value Range Interpretation Code Description Data Tatum rce(s) Supporting Document(s) ID Date Data Source [id number] 11/05/2019 04:06:44 PM EDT [facility] Initial Intake Information from: Jennifer falcon, Tobacco, Vaping or Smoke Exposure StatusSmoke Status: never smokerDo you vape? NoPassive Smoke Exposure: NoMenstrual HistoryLast Menstrual Period (LMP): 10/09/2019Any possibility of ? NoHealthcare HistorySince your last office visit...Have you been admitted to the hospital? NoHave you been to an emergency room (ER) or urgent care clinic? NoHave you seen another healthcare provider? NoHave you seen a dentist? NoIntake performed by: Asa Moon DO, November 05, 2019 4:09 PMRate Your HealthIn general, would you say your health is? FairPain AssessmentAre you currently having any pain which... You would like your provider to address? No Affects your activity level? NoDepression Screening - PHQ-2Over the last two weeks, have you... Had little interest or pleasure in doing things? Not at all Been feeling down, depressed, or hopeless? Not at all PHQ-2 Score: 0Anxiety Screening - APOLLO-2Over the last two weeks, have you been... Feeling n ervous, anxious, or on edge? Not at all Unable to stop or control worrying? Not at all APOLLO-2 Score: 0Infectious Disease / Travel ScreeningRecent travel for you or any close contacts? NoHave you had any close contact with anyone diagnosed with or under investigation for COVID-19 (coronavirus)? NoHave you had any of the following symptoms recently? Fever? NoRespiratory symptoms: cough, cold, congestion, shortness of breath, difficulty breathing? NoScreening, Brief Intervention, & Referral to Treatment (SBIRT)Pre-Screening Questions How many times have you have 4 or more drinks in a day? 0How many times have you used an illegal drug or used a prescription medication for a non-medical reason? 0Performed by: Asa Moon DO, November 05, 2019 4:09 PMPatient History Medical History:Pseudotumor Ceribri from minocycline-on DiamoxSurgical History:lumbar shunt placed/removed-minocycline allergyoral surgeryFamily History:maternal Fx diabetesFather with thyroid and Factor V leidenSocial/Personal History: Chief Complaintlabs and MRIProblem ReviewProblem List was reviewed and/or updated during this visit.Medication Reconciliation & ReviewMedication List was reviewed and/or updated during this visit, including review of any ieud-ozd-satichu medications, herbal therapies, and/or supplements.Allergy ReviewAllergy List was reviewed and/or updated during this visit.Rate Your HealthIn general, would you say your health is? FairAssessment & Plan Medications:ACETAZOLAMIDE ER 500 MG ORAL CAPSULE EXTENDED RELEASE 12 HOURAllergies:MINOCYCLINE HCL (MINOCYCLINE HCL) (Critical)* SEASONAL (Critical) Histor y of Present Illness (HPI)24 yo female here for back pain over the last 2-3 months. Telemedicine visit with patient's location at their home and provider's location at [facility]. Additional person(s)participating in the visit: Asa Moon DO has received verbal consent from the patient/guardian to conduct this visit via telehealth. The patient has been made aware that they have the right to refuse telehealth; of my location and the security of the telehealth software; any other parties present in the session; and that they have a right to select another provider if chosen for a face to face visit.Went over labs and imaging which was all essentially nl. Gluten transaminase neg.Pt states no injury to cause the back pain that she is aware of. Pain is located in her mid upper back. Pt states she thinks she has a gluten allergy or sensitivity x 5-8 months. Denies family history of GI disorders. Pt state she has pain starts a little bit after eating and then she goes to the bathroom which relieves the pain. Pt states stool is loose. Has tried cutting out dairy with no improvement. Has not tried ruling out gluten due to the difficulty following a strict gluten-free diet. Pt has had multiple PCP's in the last few years. Last was seen by a PCP in [place] about 1 year ago. Prior to that was a few years ago in [place], [place]; Dr. Issa Whitlock. Pt reports father has Factor V leiden, patient is unsure if she has ever been tested. Review of Systems General: Denies loss of appetite, chills, dizziness, fatigue, fever, continued fever, headache, feeling ill, sweats, night sweats, sleep disturbances, weight loss. Musculoskeletal: Complains of back pain. Assessment & Plan Assessment not SavedPain in thoracic spine (CHQ79-Q99.6): will f/u with me 11/18/19.Orders:Office Visit - Established, Level 3 [CPT-64178VK] Name Value Range Interpretation Code Description Data Tatum rce(s) Supporting Document(s) ID Date Data Source [id number] 10/29/2019 11:11:00 AM EDT [facility] Name Value Range Interpretation Code Description Data Tatum rce(s) Supporting Document(s) HCT 42.6 % 36.0-47.0 N [facility] HGB 14.0 g/dL 12.0-15.5 N [facility] MCH 32.9 G/DL pg 32.0-36.[address] [facility] MCHC 29.7 PG % 27.0-33.0 [facility] PLATELETS 356 10 10*3/mm3 150-450 N [facility] RBC 4.72 10 10*6/mm3 4.00-5.40 N [facility] RDW 13.2 % 11.5-14.5 [facility] WBC TOTAL 9.1 4.0-10.0 N [facility] ID Date Data Source [id number] 10/29/2019 11:11:00 AM EDT [facility] Name Value Range Interpretation Code Description Data Tatum rce(s) Supporting Document(s) BG FASTING 84 mg/dL 70-100 N [facility] T4, FREE 1.00 ng/dL 0.76-1.46 N [facility] TSH 3.730 microintl units/mL 0.358-3.740 N [facility] VIT D25 TOT 12.0 ng/mL 30.0-100.0 L [facility] ID Date Data Source [id number] 10/15/2019 03:11:50 PM EDT [facility] Measurements & CalculationsHeight: 63 inches (5 ft. 3 in.) 160.02 cm Weight: 209 pounds 4 oz. 95.11 kg Body Mass Index (BMI): 37.20BMI Interpretation: ObeseBody Surface Area (BSA): 1.97Weight Management Education Done (Nutrition/Physical Activity)Vital SignsTemperature: 97.2F tympanic Pulse Rate: 79 beats/minuteRespi ratory Rate: 18 respirations/minuteBlood Pressure: 98/59 left arm sitting automaticO2 Saturation: 99% room airVital Signs performed by: Etta Reyes LPN, October 15, 2019 3:29 PMInitial Intake Information from: patientRoom #: 2Smoking, Tobacco, Vaping or Smoke Exposure StatusSmoke Status: never smokerTobacco Use: NoDo you vape? NoPassive Smoke Exposure: NoMenstrual HistoryLast Menstrual Period (LMP): 10/09/2019Healthcare HistorySince your last office visit...Have you been admitted to the hospital? NoHave you been to an emergency room (ER) or urgent care clinic? NoHave you seen another healthcare provider? NoHave you seen a dentist? NoRate Your HealthIn general, would you say your health is? PoorPain AssessmentAre you currently having any pain which... You would like your provider to address? Yes Affects your activity level? YesDepression Screening - PHQ-2Over the last two weeks, have you... Had little interest or pleasure in doing things? Not at a ll Been feeling down, depressed, or hopeless? Not at all PHQ-2 Score: 0Anxiety Screening - APOLLO-2Over the last two weeks, have you been... Feeling nervous, anxious, or on edge? Not at all Unable to stop or control worrying? Not at all APOLLO-2 Score: 0Infectious Disease / Travel ScreeningRecent travel for you or any close contacts? NoHave you had any close contact with anyone diagnosed with or under investigation for COVID-19 (coronavirus)? NoHave you had any of the following symptoms recently? Fever? NoRespiratory symptoms: cough, cold, congestion, shortness of breath, difficulty breathing? NoPain AssessmentPain ScaleNumeric Rating Scale: 4 / 10Location: middle to upper backDuration: 2-3 monthsCharacter/Quality: aching and sharpIs the pain radiating? NoScreening, Brief Intervention, & Referral to Treatment (SBIRT)Pre- Screening Questions How many times have you have 4 or more drinks in a day? 0How many times have you used an illegal drug or used a prescription medication for a non-medical reason? 0Performed by: Etta Reyes LPN, October 15, 2019 3:18 PMPatient History Medical History:Pseudotumor Ceribri from minocycline-on DiamoxSurgical History:lumbar shunt placed/removed-minocycline allergyoral surgeryFamily History:maternal Fx diabetesFather with thyroid and Factor V leidenSocial/Personal History: Chief Complaintback pain and stomach issuesHistory of Present Illness (HPI)24 yo female here for back pain over the last 2-3 months. Pt states no injury to cause the back pain that she is aware of. Pain is located in her mid upper back. Pt states she thinks she has a gluten allergy or sensitivity x 5-8 months. Denies family history of GI disorders. Pt state she has pain starts a little bit after eating and then she goes to the bathroom which relieves the pain. Pt states stool is loose. Has tried cutting out dairy with no improvement. Has not tried ruling out gluten due to the difficulty following a strict gluten-free diet. Pt has had multiple PCP's in the last few years. Last was seen by a PCP in [place] about 1 year ago. Prior to that was a few years ago in [place], [place]; Dr. Issa Whitlock. Pt reports father has Factor V leiden, patient is unsure if she has ever been test ed. HPI performed by: Merritt CALVO, October 15, 2019 3:45 PMProblem ReviewProblem List was reviewed and/or updated during this visit.Medication Reconciliation & ReviewMedication List was reviewed and/or updated during this visit, including review of any dmca-tzq-hbfaakm medications, herbal therapies, and/or supplements.Allergy ReviewAllergy List was reviewed and/or updated during this visit.Adult Preventive CareProvider Calculated and Reviewed all Clinical Protocols for patient today. Labs/Meds/Other Counseling-Nutrition and Physical Activity:BMI Interpretation: Obese (10/15/2019) Counseling: Done (10/15/2019) Physical Activity: Done (10/15/2019)Cancer Screening Pap Smear/HPV TestingReviewed: Today's Comments: never had oneReview of Systems General: Denies chills, dizziness, fatigue, fever, headache. Eyes: Denies blurring of vision, double vision, eye pain. Cardiovascular: Denies chest pain, palpitations, feeling faint. Respiratory: Denies cough, difficulty breathing, shortness of breath. Gastrointestinal: Complains of nausea, cramps, diarrhea, pain or discomfort. Denies constipation, blood in stool, black or tarry stools, heartburn. Genitourinary: Denies pain with urination, burning with urination, urinary frequency, urinary hesitancy, incomplete emptying, blood in urine. Musculoskeletal: Complains of see HPI, back pain, muscle aches, stiffness. Denies recent injury. Skin: Denies rash, redness, itching. Neurologic: Denies weakness, numbness/tingling, feeling faint. Psychiatric: Denies depression, anxiety. Heme/Lymphatic: Denies abnormal bruising, bleeding. Physical E xamGeneral Appearance: well nourished, well hydrated, no acute distressEyes, External: conjunctivae and lids normal, EOMINeck: supple, no masses, trachea midline, full range of motion of neckThyroid: no nodules, masses, tenderness, or enlargementRespiratory, Auscultation: clear to auscultation bilaterally; no rales, rhonchi, or wheezesCardiovascular, Auscultation: S1, S2 audible; no murmur, rub, or gallop; RRRPeripheral Circulation: no clubbing, cyanosis, edema, or varicositiesAbdomen: soft, non-tender, no masses, bowel sounds normalGait & Station: normalBack: midline, straight, no lordosis or kyphosis, no tenderness to palpationSkin, Inspection: no rashes, lesions, or ulcerationsOrientation: oriented to time, place, and personJudgment & Insight: intactRate Your HealthIn general, would you say your health is? PoorAssessment & Plan Problems:Added: Generalized abdominal pain (ICD-789.07) (QFM71-X07.84) Assessment: Instructions: [place] diet. Complete labs to screen for Celiac. Recommend gluten dietary avoidance for 2-4 weeks.Soft stool (ICD-787.99) (RCL18-O82.5) Assessment: Instructions: As above. If labs are negative, will consider gallbladder ultrasound.FH: Thyroid disorder (ICD-V18.19) (UKX23-G88.49) Assessment: Instructions: Fasting labs have been ordered for you today. When labs are drawn, please ensure that you have had nothing to eat or drink for 8-10 hours prior to the blood drawn. Water or black coffee is OK to have before the blood draw.Pain in thoracic spine (ICD-724.1) (OSP68-U52.6) Assessment: Instructions: Xray. If negative, will recommend physical therapy or chiropractic, please look into chiropractic coverage with your insurer.Factor V Leiden mutation (ICD-289.81) (LCD61-S63.51) Assessment: Instructions: Screen in blood work.Benign intracranial hypertension (ICD-348.2) (WCR75-T57.2) Assessment: Instructions: Continue with your neurologist. Record release signed.Patient Instructions/Care Plan: Generalized abdominal pain: [place] diet. Complete labs to screen for Celiac. Recommend gluten dietary avoidance for 2-4 weeks.Soft stool: As above. If labs are negative, will consider gallbladder ultrasound.FH: Thyroid disorder: Fasting labs have been ordered for you today. When labs are drawn, please ensure that you have had nothing to eat or drink for 8-10 hours prior to the blood drawn. Water or black coffee is OK to have before the blood draw.Pain in thoracic spine: Xray. If negative, will recommend physical therapy or chiropractic, please look into chiropractic coverage with your insurer.Factor V Leiden mutation: Screen in blood work.Benign intracranial hypertension: Continue with your neurologist. Record release signed. Plan developed in collaboration with patient and/or familyMedications:ACETAZOLAMIDE ER 500 MG ORAL CAPSULE EXTENDED RELEASE 12 HOURMedication Changes:Added: ACETAZOLAMIDE ER 500 MG ORAL CAPSULE EXTENDED RELEASE 12 HOUR-1 tab po at nightAllergies:MINOCYCLINE HCL (MINOCYCLINE HCL) (Critical)* SEASONAL (Critical)Orders:COMP METABOLIC PANEL [CPT-63187] CBC W/DIFF [CPT-97672] LIPID PANEL [CPT-74212] TSH [CPT-57979] T-4 free [CPT-15775] Vitamin D 250H Unspecified [CPT-70107] Other Lab [930401] X-Ray - Spine, thoracic, 3 views [CPT-45458] F5 COAGULATION FACTOR V ANAL LEIDEN VARIANT [CPT- 12844] Adult - Ofc Vst, NEW, Level III [CPT-46794] Follow-Up Return to clinic: in 4-6 weeks for preventive care visitAdditional Follow-Up: annual PEClinical Visit Summary Completed Name Value Range Interpretation Code Description Data Tatum rce(s) Supporting Document(s) Procedure Social History Code Duration Value Status Description Data Source(s ) Alcohol intake 03/24/2020 12:00:00 AM EDT Ex-drinker (finding) comp leted Ex- drinker (finding) [facility] Tobacco use and exposure 03/24/2020 12:00:00 AM EDT Never used co mpleted Never used [facility] Smoking 03/24/2020 12:00:00 AM EDT Never smoker completed [facility] Vital Signs ID Date Data Source UNK Name Value Range Interpretation Code Description Data Source(s) Body weight 94.349 kg 94.349 kg [facility], ) Body mass index (BMI) [Ratio] 36.8 kg/m2 36.8 k g/m2 [facility] Body weight 208.00 [lb_av] 208.00 [lb_av] GIRISHKRISTY T ([facility], ) Body height 63 [in_i] 63 [in_i] [facility]) 5'3" Diastolic blood pressure 76 mm[Hg] 76 mm[Hg] [facility] ([facility]) Systolic blood pressure 114 mm[Hg] 114 mm[Hg] M [facility] ([facility]) ID Date Data Source [id number] 04/17/2020 01:45:21 PM [facility] Name Value Range Interpretation Code Description Data Source(s) WEIGHT RECORDED 207.2 lb 207.2 lb [facility] Body height Measured 63.7 in 63.7 in [facility] Patient Treatment Plan of Care Planned Activity Planned Date Details Description Data Source (s) 12 HR Acetazolamide 500 MG Extended Release Oral Capsu le 03/24/2020 12:00:00 AM [facility] 12 HR Acetazolamide 500 MG Extended Release Oral Capsu le 02/21/2020 12:00:00 AM [facility]
[2020-08-02] MEDS ORDERED: NS 1,000 ML IV ONE (19:15)
[2020-08-02] MEDS ORDERED: ONDANSETRON 4MG/2ML VIAL IV ONE (19:15)
[2020-08-02] MEDS ORDERED: PANTOPRAZOLE 40MG VIAL (C9113 PER 1) IV ONE (19:15)
[2020-08-02] MEDS ORDERED: KETOROLAC 30 MG/ML 1ML VIAL IV ONE (19:15)
[2020-08-02 19:46] LABS: BASO # 0.1 10^3/uL (0.0-0.2); BASO % 0.5 % (0.0-1.0); EOS # 0.2 10^3/uL (0.0-0.5); EOS % 1.2 % (0.0-3.0); HEMATOCRIT 47.4 % (36.0-47.0); HEMOGLOBIN 15.6 g/dl (12.0-15.5); LYMPH # 2.8 10^3/uL (1.5-5.0); LYMPH % 21.7 % (24.0-44.0); MEAN CORPUSCULAR HEMOGLOBIN 29.4 pg (27.0-33.0); MEAN CORPUSCULAR HGB CONC 32.9 g/dl (32.0-36.5); MEAN CORPUSCULAR VOLUME 89.3 fl (80.0-96.0); MONO # 0.8 10^3/uL (0.0-0.8); MONO % 6.1 % (0.0-5.0); PLATELET COUNT, AUTOMATED 441 10^3/uL (150-450); RED BLOOD COUNT 5.31 10^6/uL (4.00-5.40); WHITE BLOOD COUNT 12.9 10^3/uL (4.0-10.0)
--- OUTSIDE RECORDS SUMMARY | 2020-08-02 19:58 | CCD ---
Author Author [facility] Organization [facility] Address Unknown Phone Unavailable Care Team Providers Care Rn Baby Name Role Phone GODINEZ, JUSTYNA MERRITT RPA-C [...] MERRITT RPA-C Unavailable Unavailable Pedro, A Mayra DIRECTOR [employer] Unavailable Unavailable Pedro, A Mayra DIRECTOR [employer] Unavailable Unavailable Pedro, A Mayra DIRECTOR SUMMER SESSIONS Unavailable Unavailable Pedro, A Mayra DIRECTOR SUMMER SESSIONS Unavailable Unavailable Pedro, A Mayra DIRECTOR SUMMER SESSIONS Unavailable Unavailable Pedro, A Mayra DIRECTOR SUMMER SESSIONS Unavailable Unavailable Pedro, A Mayra DIRECTOR SUMMER SESSIONS Unavailable Unavailable Pedro, A Mayra DIRECTOR SUMMER SESSIONS Unavailable Unavailable Pedro, A Mayra DIRECTOR SUMMER SESSIONS Unavailable Unavailable Pedro, A Mayra DIRECTOR SUMMER SESSIONS Unavailable Unavailable Pedro, A Mayra DIRECTOR SUMMER SESSIONS Unavailable Unavailable Pedro, A Mayra DIRECTOR SUMMER SESSIONS Unavailable Unavailable Pedro, A Mayra DIRECTOR SUMMER SESSIONS Unavailable Unavailable Pedro, A Mayra DIRECTOR SUMMER SESSIONS Unavailable Unavailable Pedro, A Mayra DIRECTOR SUMMER SESSIONS Unavailable Unavailable Pedro, A Mayra DIRECTOR SUMMER SESSIONS Unavailable Unavailable Pedro, A Mayra DIRECTOR SUMMER SESSIONS Unavailable Unavailable Pedro, A Mayra DIRECTOR SUMMER SESSIONS Unavailable Unavailable Pedro, A Mayra DIRECTOR SUMMER SESSIONS Unavailable Unavailable Pedro, A Mayra DIRECTOR SUMMER SESSIONS Unavailable Unavailable Pedro, A Mayra DIRECTOR SUMMER SESSIONS Unavailable Unavailable Pedro, A Mayra DIRECTOR SUMMER SESSIONS Unavailable Unavailable Pedro, A Mayra DIRECTOR SUMMER SESSIONS Unavailable Unavailable Pedro, A Mayra DIRECTOR SUMMER SESSIONS Unavailable Unavailable Pedro, A Mayra DIRECTOR SUMMER SESSIONS Unavailable Unavailable Pedro, A Mayra DIRECTOR SUMMER SESSIONS Unavailable Unavailable Pedro, A Mayra DIRECTOR [employer] S[employer] Unavailable Unavailable Jesusita MENDOZA Unavailable Unavailable Pedro, Mayra DIRECTOR SUMMER SESSIONS DIRECTOR SUMMER SESSIONS Unavailable Unavailable JONATHANAnderson FONTANAJesusita . Unavailable Unavailable [...] is protected by Article 27-F of the [facility] Public Health law. If you continue you may have access to information: Regarding HIV / AIDS; Provided by facilities licensed or operated by the [facility] Office of Mental Health; or Provided by the [facility] Office for People With Developmental Disabilities. If such information is present, then the following [facility] mandated warning applies: This information has [...] law may result in a fine or long term sentence or both. A general authorization for the release of medical or other information is NOT sufficient authorization for further disc losure. Allergies and Adverse Reactions Type Description Substance Reaction Status Data Source(s ) Drug allergy MINOCYCLINE HCL Minocycline 100 MG Oral Capsule CSF re tention SV [facility] Miscellaneous allergy SEASONAL SEASONAL [facility] Family History Family Member Name Family Member Gender Family Member Status Date o f Status Description Data Source(s) Unknown Male Diagnosis 01/13/2018 12:00:00 AM EDT [facility] ([facility]) Encounters Encounter Providers Location Date Indications Data Source(s ) Outpatient Referrer: MICAH MENDOZA 06/16/2020 12:00:00 A [facility] Outpatient Attender: Destiny TOSCANO [id number] 10/2019 12:00:00 AM EDT - 03/24/2020 03:47:07 PM EDT Benign intracranial hypertension [facility] Benign intracranial hypertension [facility]/14/2020 05:16:00 P M EDT [facility]: [facility] 02/14/2020 05:1 5:59 PM EDT [facility] 01/11/2020 01:13:00 P M EDT [facility] 12/02/2019 03:1 2:01 PM EDT [facility] 12/02/2019 02:15:01 P M EDT [facility] Outpatient Attender: WILMA DILLON 12/02/2019 02:14:00 P M EDT [facility] Outpatient Attender: WILMA DILLON 11/25/2019 11:25:00 A M EDT [facility] Outpatient 11/24/2019 06:24:00 AM EDT [facility] Attender: [facility]AS [facility] 11/18/2019 03:02:00 PM EDT [facility] 03:01:01 PM EDT [facility]/20 10:02:01 AM EDT [facility] Outpatient Attender: SCOOBY BEARDEN [facility] 10/20 02:35:02 PM EDT [facility] Outpatient Attender: MERRITT [facility]IAS [facility] 11/09/2019 02:35:00 PM EDT [facility] Outpatient Attender: SCOOBY BEARDEN [facility] 10/19 04:29:00 PM EDT [facility] Outpatient Attender: SCOOBY BEARDEN [facility] 10/19 04:27:01 PM EDT [facility] Outpatient Attender: SCOOBY BEARDEN [facility] 10/19 04:12:01 PM EDT [facility] Outpatient Attender: SCOOBY ROSARIOIN [facility] 09/20 03:50:00 PM EDT [facility] Outpatient Attender: MERRITT FAIRAS [facility] 10/16/2019 12:00:40 AM EDT [facility] Outpatient Attender: MERRITT FARIAS [facility] 10/15/2019 04:22:02 PM EDT [facility] Outpatient Attender: CURRY PATEL . 09/14/2019 12:00:00 AM [facility] Outpatient Attender: Kayli WILSON 06/23/2019 02:05:00 PM ES [facility] Outpatient 06/20/2019 03:19:00 PM Medical Center [...] Oral active Take 1 capsule by mo [facility] every evening [facility] 12 HR Acetazolamide 500 MG Extended Rele ase Oral Capsule acetaZOLAMIDE ER 500 MG Oral Capsule Extended Release 12 Hour (DIAMOX) acetaZOLAMIDE ER 500 MG Oral Capsule Extended Release 12 Hour (DIAMOX) 02/21/2020 12:00:00 AM EDT 500 mg Oral aborted Take 1 capsule by mo [facility] every evening [facility] Insurance Providers Payer name Policy type / Coverage type Policy ID Covered constitution party ID Covered constitution party's relationship to raphael Policy Raphael Plan Information NINO [id number] SP [id number] NINO I [id number] Self [id number] [place] [id number] S [id number] Medicaid S [id number] S [id number] Managed Care Nino P [id number] S [id number] Medicaid Dental S [id number] S [id number] MEDICAID [id number] SP [id number] Medicaid Dental P [id number] S [id number] SELF PAY O [id number] S [id number] SELF PAY ONLY [id number] SP [id number] NINO [id number] SP [id number] NINO MEDICAID [id number] Joselin 7 [id number] NINO MEDICAID PI PI DENTAL DENTAQUEST CHRISTO [id number] A [id number] Nino [id number] Self [id number] Problems, Conditions, and Diagnoses Code Display Name Description Problem Type Effective Dates Data Source(s) E55.9 Vitamin D deficiency, unspecified Vitamin D deficiency , unspecified 02/14/2020 05:15:38 PM EDT [facility] 724.1 Acute thoracic back pain Acute thoracic back pain 11/18/2019 03:00:20 PM EDT [facility] G54.0 Brachial plexus disorders Left thoracic outlet syndrom e 11/18/2019 03:00:20 PM EDT [facility] 348.2 Benign intracranial hypertension Benign intracranial h ypertension 10/15/2019 04:20:13 PM EDT [facility] 289.81 Factor V Leiden mutation Factor V Leiden mutation 10/15/2019 04:20:13 PM EDT [facility] 724.1 Pain in thoracic spine Pain in thoracic spine 10/15/2019 04:20:13 PM EDT [facility] V18.19 FH: Thyroid disorder FH: Thyroid disorder 10/14 04:20:13 PM EDT [facility] R10.84 Generalized abdominal pain Generalized abdominal pain 10/15/2019 04:20:13 PM EDT [facility] R19.5 Other fecal abnormalities Soft stool 10/15/2019 04:20:13 PM EDT [facility] Results ID Date Data Source [id number] 07/29/2020 04:40:00 AM EST [facility] Name Value Range Interpretation Code Description Data Tatum rce(s) Supporting Document(s) SARS-CoV-2 (COVID 19) NEGATIVE - SARS-CoV-2 (COVID19) [facility] This lab was ordered by [facility] a nd reported by [facility]. ID Date Data Source [id number] 06/17/2020 12:00:00 AM EST [facility] Name Value Range Interpretation Code Description Data Tatum rce(s) Supporting Document(s) SARS-CoV2 Rapid Antigen [facility] This lab was ordered by [facility] and reported by [facility]. ID Date Data Source [id number] 04/17/2020 01:45:[address] [facility] Name Value Range Interpretation Code Description Data Tatum rce(s) Supporting Document(s) Progress Note [facility] FMBDBa1hCuMWAmGb37/XIVktEDAbk2AxYQycVOe1RMwpIIVhK8RrOHW2sB8pXFN2AOzIIvGnWwEuJBE5 lbm [file] ICAgICAgICAgICAgICAgICAgICAgICAgICAgICAgIC AgICAgICAgICAgICAgICAgICAgICAgICAgICAgICAgICAgICAgICAgICAgICAgICAgICAgICAgICAgDQ ogICAgICAgICAgICAgICAgICAgICAgICAgICAgICAgICAgICAgICAgICAgICAgICAgICAgICAgICAgIC AgICAgICAgICAgICAgICAgICAgICAgICAgICAgICAg ICAgICAgICAgDQogICAgICAgICAgICAgICAgICAgICAgICAgICAgICAgICAgICAgICAgICAgICAgICAg ICAgICAgICAgICAgICAgICAgICAgICAgICAgICAgICAgICAgICAgICAgICAgICAgICAgDQogICAgICAg ICAgICAgICAgICAgICAgICAgICAgICAgICAgICAgIC AgICAgICAgICAgICAgICAgICAgICAgICAgICAgICAgICAgICAgICAgICAgICAgICAgICAgICAgICAgIC AgDQogICAgICAgICAgICAgICAgICAgICAgICAgICAgICAgICAgICAgICAgICAgICAgICAgICAgICAgIC AgICAgICAgICAgICAgICAgICAgICAgICAgICAgICAg ICAgICAgICAgICAgDQogICAgICAgICAgICAgICAgICAgICAgICAgICAgICAgICAgICAgICAgICAgICAg ICAgICAgICAgICAgICAgICAgICAgICAgICAgICAgICAgICAgICAgICAgICAgICAgICAgICAgDQogICAg ICAgICAgICAgICAgICAgICAgICAgICAgICAgICAgIC AgICAgICAgICAgICAgICAgICAgICAgICAgICAgICAgICAgICAgICAgICAgICAgICAgICAgICAgICAgIC AgICAgDQogICAgICAgICAgICAgICAgICAgICAgICAgICAgICAgICAgICAgICAgICAgICAgICAgICAgIC AgICAgICAgICAgICAgICAgICAgICAgICAgICAgICAg ICAgICAgICAgICAgICAgDQogICAgICAgICAgICAgICAgICAgICAgICAgICAgICAgICAgICAgICAgICAg ICAgICAgICAgICAgICAgICAgICAgICAgICAgICAgICAgICAgICAgICAgICAgICAgICAgICAgICAgDQog ICAgICAgICAgICAgICAgICAgICAgICAgICAgICAgIC AgICAgICAgICAgICAgICAgICAgICAgICAgICAgICAgICAgICAgICAgICAgICAgICAgICAgICAgICAgIC WvTKXbNDHaAMb5F0oaATHxYOHvMP1hZQi0Pl7+HFxKUuTwHXU1qbNrxH7PAO0wi8QsFIacNNIzp4TnTQ c8DL4IZNZzOFovKA9EBXpvlf8NOLGmVXVqgVVLz9zz MfQyCRL3TKDyHldiDM6OEYHjB5qartVfXNGdOKDAUCaoVVFPBPjkJCXCEQElKEKzVkYbEkUbVJQoHERw HVSMSO2KPxBaW1WvqQ22NGZVOb1+BAtrloBqXgaGPuHfTITlq8UoPWs3JD1AKVLvVnwkx0VcGtUqNPVW XNrbZJ7GPKX0WNBnJEMnZq5XDXGzL514vuXmUP2QAs 5INcXeKS1qrc4UTyBnBQHhKqqKSkc2ZSlrUT3ViWRlBPnNki0czqXcaoOFz4HxulJtaWRITMLtJKX1TP touZRfDR1AWrYnLCSgCS16NfHzHbGyBXN7UOOcEV9kGStxLO1XSSE1WSqfCKQzSFSaK0gYRlEeYVIvMH NfmAxlWJ5STmCtI8QtmoRgyWPyPtJcHDNGMv2+DQpl elTyAqzHNbH0SIQoe4AbBWs7QJ3XFNXdEChnVJ4JLEIkiR2xMVydIX3NXuCaEDQqQQADZnAxO38niKPd TTh7V8UyGzBwHFUjUksuPHBpBPgqDhMaZYJkLbAsMJupKE8+ID4+BZmjIM2XNInvmhNrSQLlDa7TVTUe YQJuZZ2aXMSaCBCiA6T9oVxkWIPRUtMlA2jyyzapOZ 0pVKKvZ247uPkigsByCEWrZVPpOv9MNGEtJAB4BNTatTFhYjNtXKVKWCtgLF4JrBEuIOG9mJ0bOCciTA WlVVTgF1fFOyTueQsqJA02aKqwasHaeQWgYTo+Lj5RJA8vu8PyHQf2xnCbEIbwZSS6ZKlnWCPsIGFtSX GjHUA0SJI5IIIHQzUwKULjERVzWJgmHGMzILNhve1J CDPqLOPjWWT8RrFqYOUdOSLzYBiwCJEgQDN9RRH9KWFkMTJoSQ7PDuCxGWBdRAHnGWahRFRfIJBrgl9R NCXiHDZpCIH5JVOxINHxFXPoUXwtDHWdNMM7QrnpIHNcYWQmJK5MVsIuIGWjTKjbKoclVNUqBPDpdy2N IXHcFZCoItUzDwGgUNTqQAAfKZsbAAHsWMQ1QBR9OL RmOLDfVB0KNhXmIENeIJd6QqGxTVZiQAXudw6OWYTwFFOxIuW8FeCgFRTnEMWaCYpbTIUaZFRsXUPbDB SqPLKpYI4FBdPcHNDpRJZ9WoXmKOKcPQDufg0FAHEqVAVpXmsyLUNaRFCiWPWsUOcvTPFxSEQ8Ozn5GZ FqHJNbZE2MTvNuSIFgPFv7UGEzIUZfFWRorw4VKTGr KIUvKIn4NWKlBYUaXTHqNDmaQAVeFQF2VWT4KAAgYGRjFC0WKbLaPBUjREfqWOHhDZUgNSYlza5SSPEb DXFwUCQoIDMpCURbFGUbRAngPGVlNNGpBXDwHTJqMKMbMK5PErBqVTUuCnA1SUEdVXFnFJGfja6JHEAe ZKYpOkYqKBWyVDOmCFLrZKdmUSBjBKNvWlA0LPIcHX VpVI1EPhSxKCYzOxB8UEDcFDGpOGQiqp9CJYMlEHNkQvixNXJdUJHdNDKbJSciMBNgGOHsGAStNPIlCN WtYY5REqDhCGWaTeD2PXJeAGLpDQZxfe3METRqBDRmXIB8CgPqFRJhREKnMPwnAEOnVFJ8DgPrEVKlHI ViGB3DQtIeYGZhGsC1VydfOUFsYGNrdn9KZFSwYHSm QeM0EUWuFVZzGTGjQCntDQTqKRP9FiW7HJKwNUBfZC5WClUgEIMoXpJpRrixICQiYMAwky4VkRCeyWav ju1AGZyMLp4ZjWgfWCK1UZuhMb1wnNBgIALvAWLYXa8JneFcVQSkLXUHGClpFTVbHFSsAXEjDKY7LpVu GTJrR2Z0UvQaVeGmZgDdWbowXvZ8KsR7YwPcDOS6AI qqXBA3CqCrZlm3M1JiTEZyO6TiCHGsGXB+RF5vBJs+Qk8Zv7CfdfQ1gkNyPMftIcNkEO2XZMEYW7LJVu == ID Date Data Source [id number] 12/02/2019 02:35:17 PM EDT [facility] Measurements & CalculationsHeight: 63 inches [...] during this visit, including review of any enrx-vyw-dnxrqhu medications, herbal therapies, and/or supplements.Allergy ReviewAllergy List [...] & Plan Problems:Assessed:Acute thoracic back pain (ICD-724.1) (UIL56-Q93.6) Assessment: OMTLeft thoracic outlet syndrome (XXI32-Q12.0) Assessment: OMTAssessment not SavedPain in thoracic spine (PCR32-R31.6): OMTMedications:CY CLOBENZAPRINE HCL 10 MG ORAL TABLETORPHENADRINE [...] (Critical)Orders:Adult - Ofc Vst, EST, Level III [CPT-43938] Medications:CYCLOBENZAPRINE HCL 10 MG ORAL TABLET (CYCLOBENZAPRINE HCL) one tab po TID prn muscle spasm #30[Tablet] x 1 Route:ORAL Entered and Authorized by: Asa Moon DO Method used: Electronically to [facility]* (retail) [id number] [place] [id number] Note to Pharmacy: Route: ORAL; RxID: [id number] signed by Asa Moon DO on 12/02/2019 at 3:11 PM Name Value Range Interpretation Code Description Data Tatum rce(s) Supporting Document(s) ID Date Data Source [id number] 11/18/2019 02:03:47 PM EDT [facility] Measurements & CalculationsHeight: 63 inches [...] or issues. 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.Problem ReviewProblem List was reviewed and/or updated during this visit.Medication Reconciliation & ReviewMedication List was reviewed and/or updated during this visit, including review of any aetk-okz-zloozbk medications, herbal therapies, and/or supplements.Allergy ReviewAllergy List [...] & Plan Problems:Added: Left thoracic outlet syndrome (GJP44-G79.0)Acute thoracic back pain (ICD-724.1) (JHN33-K52.6)Medications:ORPHENADRINE CITRATE ER 100 MG ORAL TABLET EXTENDED [...] (Critical)Orders:Adult - Ofc Vst, EST, Level III [CPT-67358] Medications:ORPHENADRINE CITRATE ER 100 MG ORAL TABLET EXTENDED RELEASE 12 HOUR (ORPHENADRINE CITRATE) one tab po BID prn spasm #30[Tablet] x 1 Route:ORAL Entered and Authorized by: Asa Moon DO Method used: Electronically to [facility]* (wmfyjp) [id number] [facility] [id number] Note to Pharmacy: Route: ORAL; RxID: [id number] Administered/Entered:Vaccination Group: InfluenzaSeries: 1 NOT GIVENVaccination: Flucelvax Quadrivalent PF (4y+) AdultReason Not Given: Patient decisionEntered Date: 11/18/2019 12:00 AMComments: Pt refusedEntered by: Jesus Alberto Atwood MA Name Value Range Interpretation Code Description Data Tatum rce(s) Supporting Document(s) ID Date Data Source [id number] 11/05/2019 04:06:44 PM EDT [facility] Initial Intake Information from: Jennifer [...] during this visit, including review of any tngr-bwx-lwcioqp medications, herbal therapies, and/or supplements.Allergy ReviewAllergy List [...] at their home and provider's location at [facility]. Additional person(s)participating in the visit: Asa Moon [...] Last was seen by a PCP in [place] about 1 year ago. Prior to that was a few years ago in [place], [place]; Dr. Issa Whitlock. Pt reports father has Factor V leiden, patient is unsure if she has ever been tested. Review of Systems General: Denies loss of appetite, chills, dizziness, fatigue, fever, continued fever, headache, feeling ill, sweats, night sweats, sleep disturbances, weight loss. Musculoskeletal: Complains of back pain. Assessment & Plan Assessment not SavedPain in thoracic spine (UYY25-K32.6): will f/u with me 11/18/19.Orders:Office Visit - Established, Level 3 [CPT-78184MQ] Name Value Range Interpretation Code Description Data Tatum rce(s) Supporting Document(s) ID Date Data Source [id number] 10/29/2019 11:11:00 AM EDT [facility] Name Value Range Interpretation Code Description Data Tatum rce(s) Supporting Document(s) HCT 42.6 % 36.0-47.0 N [facility] HGB 14.0 g/dL 12.0-15.5 N [facility] MCH 32.9 G/DL pg 32.0-36.5 N [facility] MCHC 29.7 PG % 27.0-33.0 [facility] PLATELETS 356 10 10*3/mm3 150-450 N [facility] RBC 4.72 10 10*6/mm3 4.00-5.40 N [facility] RDW 13.2 % 11.5-14.5 [facility] WBC TOTAL 9.1 4.0-10.0 N [facility] ID Date Data Source [id number] 10/29/2019 11:11:00 AM EDT [facility] Name Value Range Interpretation Code Description Data Tatum rce(s) Supporting Document(s) BG FASTING 84 mg/dL 70-100 N [facility] T4, FREE 1.00 ng/dL 0.76-1.46 N [facility] TSH 3.730 microintl units/mL 0.358-3.740 N [facility] VIT D25 TOT 12.0 ng/mL 30.0-100.0 L [facility] ID Date Data Source [id number] 10/15/2019 03:11:50 PM EDT [facility] Measurements & CalculationsHeight: 63 inches [...] Last was seen by a PCP in [place] about 1 year ago. Prior to that was a few years ago in [place], [place]; Dr. Issa Whitlock. Pt reports father has Factor V leiden, patient is unsure if she has ever been test ed. HPI performed by: Merritt CALVO, October 15, 2019 3:45 PMProblem ReviewProblem List was reviewed and/or updated during this visit.Medication Reconciliation & ReviewMedication List was reviewed and/or updated during this visit, including review of any ofay-xqs-pqpvpcq medications, herbal therapies, and/or supplements.Allergy ReviewAllergy List [...] & Plan Problems:Added: Generalized abdominal pain (ICD-789.07) (GEY31-I58.84) Assessment: Instructions: [place] diet. Complete labs to screen for Celiac. Recommend gluten dietary avoidance for 2-4 weeks.Soft stool (ICD-787.99) (ENV81-I02.5) Assessment: Instructions: As above. If labs are negative, will consider gallbladder ultrasound.FH: Thyroid disorder (ICD-V18.19) (GWT20-Q74.49) Assessment: Instructions: Fasting labs have been ordered for you today. When labs are drawn, please ensure that you have had nothing to eat or drink for 8-10 hours prior to the blood drawn. Water or black coffee is OK to have before the blood draw.Pain in thoracic spine (ICD-724.1) (FXY01-M50.6) Assessment: Instructions: Xray. If negative, will recommend physical therapy or chiropractic, please look into chiropractic coverage with your insurer.Factor V Leiden mutation (ICD-289.81) (THK73-V89.51) Assessment: Instructions: Screen in blood work.Benign intracranial hypertension (ICD-348.2) (BLG13-U04.2) Assessment: Instructions: Continue with your neurologist. Record release signed.Patient Instructions/Care Plan: Generalized abdominal pain: [place] diet. Complete labs to screen for Celiac. [...] (MINOCYCLINE HCL) (Critical)* SEASONAL (Critical)Orders:COMP METABOLIC PANEL [CPT-83274] CBC W/DIFF [CPT-57062] LIPID PANEL [CPT-29546] TSH [CPT-77699] T-4 free [CPT-33634] Vitamin D 250H Unspecified [CPT-95382] Other Lab [[id number]] X-Ray - Spine, thoracic, 3 views [CPT-34547] F5 COAGULATION FACTOR V ANAL LEIDEN VARIANT [CPT- 32704] Adult - Ofc Vst, NEW, Level III [CPT-63292] Follow-Up Return to clinic: in 4-6 weeks for preventive care visitAdditional Follow-Up: annual PEClinical Visit Summary Completed Name Value Range Interpretation Code Description Data Tatum rce(s) Supporting Document(s) Procedure Social History Code Duration Value Status Description Data Source(s ) Alcohol intake 03/24/2020 12:00:00 AM EDT Ex-drinker (finding) comp leted Ex- drinker (finding) [facility] Tobacco use and exposure 03/24/2020 12:00:00 AM EDT Never used co mpleted Never used [facility] Smoking 03/24/2020 12:00:00 AM EDT Never smoker completed Never s [facility] Vital Signs ID Date Data Source UNK Name Value Range Interpretation Code Description Data Source(s) Body weight 94.349 kg 94.349 kg [facility] Body mass index (BMI) [Ratio] 36.8 kg/m2 36.8 k g/m2 [facility] Body weight 208.00 [lb_av] 208.00 [lb_av] GIRISHKRISTY T ([facility], ) Body height 63 [in_i] 63 [in_i] [facility] ([facility]) 5'3" Diastolic blood pressure 76 mm[Hg] 76 mm[Hg] [facility] ([facility]) Systolic blood pressure 114 mm[Hg] 114 mm[Hg] M COUNT INCLUDES THE [facility] ([facility]) ID Date Data Source [id number] 04/17/2020 01:45:21 PM [facility] Name Value Range Interpretation Code Description Data Source(s) WEIGHT RECORDED 207.2 lb 207.2 lb [facility] Body height Measured 63.7 in 63.7 in [facility] Patient Treatment Plan of Care Planned Activity Planned Date Details Description Data Source (s) 12 HR Acetazolamide 500 MG Extended Release Oral Capsu le 03/24/2020 12:00:00 AM [facility] 12 HR Acetazolamide 500 MG Extended Release Oral Capsu le 02/21/2020 12:00:00 AM [facility]
[2020-08-02 20:08] LABS: HCG, SERUM QUALITATIVE NEGATIVE (NEGATIVE)
[2020-08-02 20:11] LABS: ALBUMIN 4.1 GM/DL (3.2-5.2); ALT/SGPT 65 U/L (12-78); BILIRUBIN,DIRECT < 0.1 MG/DL (0.0-0.2); BILIRUBIN,TOTAL 0.4 MG/DL (0.2-1.0); BLOOD UREA NITROGEN 12 MG/DL (7-18); CALCIUM LEVEL 9.7 MG/DL (8.5-10.1); CARBON DIOXIDE LEVEL 21 MEQ/L (21-32); CHLORIDE LEVEL 109 MEQ/L (98-107); CREATININE FOR GFR 0.83 MG/DL (0.55-1.30); GLOMERULAR FILTRATION RATE > 60.0 (>60); GLUCOSE, FASTING 90 MG/DL (70-100); LIPASE 50 U/L (73-393); POTASSIUM SERUM 4.4 MEQ/L (3.5-5.1); SODIUM LEVEL 139 MEQ/L (136-145); TOTAL PROTEIN 8.1 GM/DL (6.4-8.2)
--- NOTE | 2020-08-02 21:31 | REPVR ---
PROCEDURE INFORMATION: Exam: CT Abdomen And Pelvis Without Contrast Exam date and time: 08/02/2020 8:19 PM Age: 24 years old Clinical indication: Abdominal pain; Generalized; Prior surgery; Surgery type: Appendix; Additional info: Pain S/P surgery TECHNIQUE: Imaging protocol: Computed tomography of the abdomen and pelvis without contrast. Radiation optimization: All CT scans at this facility use at least one of these dose optimization techniques: automated exposure control; mA and/or kV adjustment per patient size (includes targeted exams where dose is matched to clinical indication); or iterative reconstruction. COMPARISON: CT ABD/PEL W/IV CONTRAST ONLY 07/29/2020 2:38 AM FINDINGS: Liver: Normal. No mass. Gallbladder and bile ducts: Normal. No calcified stones. No ductal dilation. Pancreas: Normal. No ductal dilation. Spleen: Normal. No splenomegaly. Adrenal glands: Normal. No mass. Kidneys and ureters: Normal. No hydronephrosis. Stomach and bowel: Unremarkable. No obstruction. No mucosal thickening. Appendix: There has been prior appendectomy. Intraperitoneal space: Unremarkable. No free air. No significant fluid collection. Vasculature: Unremarkable. No abdominal aortic aneurysm. Lymph nodes: Unremarkable. No enlarged lymph nodes. Urinary bladder: Unremarkable as visualized. Reproductive: Unremarkable as visualized. Bones/joints: Unremarkable. No acute fracture. Soft tissues: Small fat containing umbilical hernia. IMPRESSION: No acute findings. Electronically signed by: Kobi Conley On 08/02/2020 21:31:05 PM
[2020-08-02 22:26] VITALS: BP 130/69
== END 2020-08-02 22:35 | disposition home or self-care (01) ==
LOC: M ED 16:46
DX: R10.9 Unspecified abdominal pain (principal); R11.0 Nausea; Z88.1 Allergy status to other antibiotic agents
CPT/HCPCS: 74176; 80048; 80076; 81001; 83605; 83690; 84703; 85025; 87086; 96361; 96374; 96375; 99283; C9113; J1885; J2405

== ENCOUNTER 2021-04-12 02:58 | Emergency (ER) | payer OTHER ==
[~2021-04-12] VITALS: Ht 160 cm; Wt 91.4 kg
[2021-04-12 02:59] VITALS: BP 140/90
[2021-04-12] MEDS ORDERED: SUMA50TA2 PO (03:17)
[2021-04-12 07:56] LABS: BASO % 0.3 % (0.0-1.0); EOS # 0.2 10^3/uL (0.0-0.5); HEMATOCRIT 44.9 % (36.0-47.0); HEMOGLOBIN 14.9 g/dl (12.0-15.5); LYMPH % 25.9 % (24.0-44.0); MEAN CORPUSCULAR HGB CONC 33.2 g/dl (32.0-36.5); MEAN CORPUSCULAR VOLUME 90.5 fl (80.0-96.0); MONO # 0.8 10^3/uL (0.0-0.8); MONO % 7.2 % (2.0-8.0); NEUTROPHILS # 7.3 10^3/uL (1.5-8.5); PLATELET COUNT, AUTOMATED 397 10^3/uL (150-450); RED BLOOD COUNT 4.96 10^6/uL (4.00-5.40); WHITE BLOOD COUNT 11.5 10^3/uL (4.0-10.0)
[2021-04-12] MEDS ORDERED: diphenhydrAMINE 50MG/ML VIAL (J1200) IV ONE (08:30)
[2021-04-12] MEDS ORDERED: KETOROLAC 30 MG/ML 1ML VIAL IV ONE (08:30)
[2021-04-12] MEDS ORDERED: METOCLOPRAMIDE INJ 10MG/2ML VIAL (J2765 PER 1) IV ONE (08:30)
[2021-04-12] MEDS ORDERED: NS 1,000 ML IV ONE (08:30)
[2021-04-12] MEDS ORDERED: dexameTHASONE 20MG/5ML VIAL (J1100 PER 1MG) IV ONE (08:30)
[2021-04-12 08:38] LABS: ERYTHROCYTE SEDIMENTATION RATE 15 mm/hr (0-20)
== END 2021-04-12 10:21 | disposition home or self-care (01) ==
LOC: M ED 02:58
DX: R51.9 Headache, unspecified (principal)
CPT/HCPCS: 80047; 83735; 84702; 85025; 85652; 96361; 96374; 96375; 99283; J1100; J1200; J1885; J2765

== ENCOUNTER 2022-02-26 17:33 | Emergency (ER) | payer OTHER ==
[~2022-02-26] VITALS: Ht 160 cm; Wt 80.3 kg
[~2022-02-26 17:33] MED LIST changes: +SUMA50TA2 PO
[2022-02-26 17:35] VITALS: BP 108/62
== END 2022-02-26 19:26 | disposition left against medical advice (07) ==
LOC: M ED 17:33
DX: Z53.21 Procedure and treatment not carried out due to patient leaving prior to being seen by health care provider (principal)

== ENCOUNTER → 2022-10-16 | Outpatient (REF) | payer OTHER ==
[2022-10-16 18:46] LABS: HIV 1&2 SCREEN CENTAUR NEGATIVE (NEGATIVE)
[2022-10-16 18:54] LABS: HEPATITIS C VIRUS ABY INDEX 0.2 INDEX (<0.8)
== END ==
LOC: M LAB REF 16:54
PROVIDERS: ATTEND Physician Assistant
DX: Z11.59 Encounter for screening for other viral diseases (principal); Z11.4 Encounter for screening for human immunodeficiency virus [HIV]; Z12.4 Encounter for screening for malignant neoplasm of cervix; Z11.3 Encounter for screening for infections with a predominantly sexual mode of transmission

== ENCOUNTER 2023-01-26 15:30 | Emergency (ER) | payer OTHER ==
[~2023-01-26] VITALS: Ht 160 cm; Wt 82.1 kg
[2023-01-26] MEDS ORDERED: ACET500C10 (15:39)
[2023-01-26 21:08] VITALS: BP 115/76; TEMP 98.3; O2SAT 99
== END 2023-01-26 21:10 | disposition home or self-care (01) ==
LOC: M ED 15:30
DX: M25.562 Pain in left knee (principal); D68.2 Hereditary deficiency of other clotting factors; F17.200 Nicotine dependence, unspecified, uncomplicated; Z83.2 Family history of diseases of the blood and blood-forming organs and certain disorders involving the immune mechanism; Z88.1 Allergy status to other antibiotic agents; Z79.899 Other long term (current) drug therapy

== ENCOUNTER 2023-03-09 17:27 | Emergency (ER) | payer OTHER ==
[~2023-03-09] VITALS: Ht 160 cm; Wt 79.1 kg
[~2023-03-09 17:27] MED LIST changes: +ACET500C10
[2023-03-09] MEDS ORDERED: NS 1,000 ML IV ONE (19:20)
[2023-03-09] MEDS ORDERED: ISOVUE-370 76% 100ML VIAL As Ordered ONE (19:39)
[2023-03-09 19:42] LABS: BASO # 0.1 10^3/uL (0.0-0.2); BASO % 0.5 % (0.0-1.0); EOS # 0.1 10^3/uL (0.0-0.5); EOS % 1.4 % (0.0-3.0); HEMATOCRIT 40.3 % (36.0-47.0); HEMOGLOBIN 13.6 g/dl (12.0-15.5); LYMPH # 3.2 10^3/uL (1.5-5.0); LYMPH % 32.5 % (24.0-44.0); MEAN CORPUSCULAR HEMOGLOBIN 31.4 pg (27.0-33.0); MEAN CORPUSCULAR HGB CONC 33.7 g/dl (32.0-36.5); MEAN CORPUSCULAR VOLUME 93.1 fl (80.0-96.0); MONO # 0.7 10^3/uL (0.0-0.8); MONO % 6.9 % (2.0-8.0); NEUTROPHILS # 5.7 10^3/uL (1.5-8.5); NEUTROPHILS % 58.4 % (36.0-66.0); PLATELET COUNT, AUTOMATED 337 10^3/uL (150-450); RED BLOOD COUNT 4.33 10^6/uL (4.00-5.40); WHITE BLOOD COUNT 9.7 10^3/uL (4.0-10.0)
[2023-03-09 20:06] LABS: CK-MB VALUE MASS 1.5 NG/ML (<3.6)
[2023-03-09 20:10] LABS: CPK CREATINE PHOSPHOKINASE 74 U/L (34-145); MB/CK RELATIVE INDEX 2.02 (< OR =4)
[2023-03-09] MEDS ORDERED: NAPR-837 PO (20:33)
[2023-03-09] MEDS ORDERED: VENTAER INH (20:33)
[2023-03-09] MEDS ORDERED: KETOROLAC 30 MG/ML 1ML VIAL IV ONE (20:35)
[2023-03-09] MEDS ORDERED: ALBUTEROL 90 MCG/ACT 8GM HFA INHALER INH ONE (20:35)
[2023-03-09 20:49] VITALS: BP 120/89; TEMP 98.6; O2SAT 98
== END 2023-03-09 20:50 | disposition home or self-care (01) ==
LOC: M ED 17:27
DX: R07.9 Chest pain, unspecified (principal); S22.060A Wedge compression fracture of T7-T8 vertebra, initial encounter for closed fracture; F17.200 Nicotine dependence, unspecified, uncomplicated; Z79.52 Long term (current) use of systemic steroids; Z79.1 Long term (current) use of non-steroidal anti-inflammatories (NSAID); Z79.899 Other long term (current) drug therapy; Z88.8 Allergy status to other drugs, medicaments and biological substances
CPT/HCPCS: 71046; 71275; 80047; 82550; 82553; 84702; 85025; 93005; 94640; 96374; 99284; J1885; Q9967

== ENCOUNTER → 2023-03-17 | Outpatient (REF) | payer OTHER ==
[~2023-03-17] MED LIST changes: +NAPR-837 PO; +VENTAER INH
[2023-03-17 17:41] LABS: THYROID STIMULATING HORMONE 2.333 uIU/ML (0.55-4.78); TOTAL 25(OH) VITAMIN D 18.2 NG/ML (20.0-100.0)
== END ==
LOC: M LAB REF 16:23
PROVIDERS: ATTEND Pediatrics
DX: E55.9 Vitamin D deficiency, unspecified (principal); D68.51 Activated protein C resistance; T14.8XXD Other injury of unspecified body region, subsequent encounter

== ENCOUNTER 2023-04-03 19:58 | Emergency (ER) | payer OTHER ==
[~2023-04-03] VITALS: Ht 160 cm; Wt 77.6 kg
[2023-04-03 19:58] VITALS: BP 122/75; TEMP 98.9; O2SAT 97
[2023-04-03] MEDS ORDERED: LIDOCAINE 1% MDV 20ML VIAL SC ONE (22:25)
[2023-04-03] MEDS ORDERED: CEPHALEXIN 500 MG CAP PO ONE (22:25)
[2023-04-03] MEDS ORDERED: CEPH500T PO (22:51)
== END 2023-04-03 23:00 | disposition home or self-care (01) ==
LOC: M ED 19:58
DX: S61.011A Laceration without foreign body of right thumb without damage to nail, initial encounter (principal); W26.0XXA Contact with knife, initial encounter; F10.10 Alcohol abuse, uncomplicated; Y92.009 Unspecified place in unspecified non-institutional (private) residence as the place of occurrence of the external cause; Z88.1 Allergy status to other antibiotic agents; Z79.1 Long term (current) use of non-steroidal anti-inflammatories (NSAID); Z79.899 Other long term (current) drug therapy

== ENCOUNTER → 2023-05-05 | Outpatient (CLI) | payer OTHER ==
[~2023-05-05] MED LIST changes: +CEPH500T PO
== END ==
LOC: M SOG 07:57
PROVIDERS: ATTEND Orthopaedic Surgery
DX: Z53.9 Procedure and treatment not carried out, unspecified reason (principal)

== ENCOUNTER → 2023-09-24 | Outpatient (CLI) | payer OTHER | LOC: M WHC 10:57 | PROVIDERS: ATTEND Physician Assistant | DX: S22.000S Wedge compression fracture of unspecified thoracic vertebra, sequela (principal); Z13.820 Encounter for screening for osteoporosis; M25.50 Pain in unspecified joint; R53.82 Chronic fatigue, unspecified ==

== ENCOUNTER 2023-12-29 18:06 | Emergency (ER) | payer OTHER ==
[~2023-12-29] VITALS: Ht 160 cm; Wt 75.5 kg
[2023-12-29 18:07] VITALS: BP 131/81; TEMP 97.8; O2SAT 97
[2023-12-29] MEDS ORDERED: DULO1CAP4 (18:24)
== END 2023-12-29 20:41 | disposition home or self-care (01) ==
LOC: M ED 18:06
DX: S90.02XA Contusion of left ankle, initial encounter (principal); W22.8XXA Striking against or struck by other objects, initial encounter; D68.2 Hereditary deficiency of other clotting factors; F17.200 Nicotine dependence, unspecified, uncomplicated; Z88.1 Allergy status to other antibiotic agents; Z90.89 Acquired absence of other organs; Y92.009 Unspecified place in unspecified non-institutional (private) residence as the place of occurrence of the external cause; Y93.89 Activity, other specified; Y99.9 Unspecified external cause status; Z79.52 Long term (current) use of systemic steroids; Z79.899 Other long term (current) drug therapy

== ENCOUNTER → 2024-05-27 | Outpatient (CLI) | payer OTHER ==
[~2024-05-27] MED LIST changes: +DULO1CAP4
[2024-05-27 18:57] LABS: BASO # 0.1 10^3/uL (0.0-0.2); BASO % 0.9 % (0.0-1.0); EOS # 0.1 10^3/uL (0.0-0.5); EOS % 1.6 % (0.0-3.0); HEMATOCRIT 39.9 % (36.0-47.0); HEMOGLOBIN 13.2 g/dl (12.0-15.5); LYMPH # 1.7 10^3/uL (1.5-5.0); LYMPH % 30.2 % (24.0-44.0); MEAN CORPUSCULAR HEMOGLOBIN 30.1 pg (27.0-33.0); MEAN CORPUSCULAR HGB CONC 33.1 g/dl (32.0-36.5); MEAN CORPUSCULAR VOLUME 90.9 fl (80.0-96.0); MONO # 0.5 10^3/uL (0.0-0.8); MONO % 8.2 % (2.0-8.0); NEUTROPHILS # 3.2 10^3/uL (1.5-8.5); NEUTROPHILS % 58.7 % (36.0-66.0); PLATELET COUNT, AUTOMATED 338 10^3/uL (150-450); RED BLOOD COUNT 4.39 10^6/uL (4.00-5.40); WHITE BLOOD COUNT 5.5 10^3/uL (4.0-10.0)
[2024-05-27 19:24] LABS: C REACTIVE PROTEIN QUANTITATIV < 0.40 MG/DL (<1.0)
[2024-05-27 19:26] LABS: ALBUMIN 3.6 G/DL (3.2-5.2); ALKALINE PHOSPHATASE 89 U/L (35-104); ALT/SGPT 17 U/L (7.0-40); AST/SGOT 11 U/L (<34); BILIRUBIN,TOTAL 0.7 MG/DL (0.3-1.2); BLOOD UREA NITROGEN 13 MG/DL (9-23); CALCIUM LEVEL 9.1 MG/DL (8.5-10.1); CARBON DIOXIDE LEVEL 25 MMOL/L (20-31); CHLORIDE LEVEL 108 MMOL/L (98-107); CREATININE FOR GFR 0.77 MG/DL (0.55-1.30); ERYTHROCYTE SEDIMENTATION RATE 18 mm/hr (0-20); GLOMERULAR FILTRATION RATE > 60.0 (>60); GLUCOSE, FASTING 77 MG/DL (60-100); POTASSIUM SERUM 4.1 MMOL/L (3.5-5.1); RHEUMATOID FACTOR QUANT < 3.5 IU/ML (<14); SODIUM LEVEL 137 MMOL/L (136-145); TOTAL PROTEIN 7.2 G/DL (5.7-8.2)
[2024-05-31 10:18] LABS: ANA SCREEN, IFA NEGATIVE (NEGATIVE)
[2024-05-31 12:37] LABS: SSA SJOGRENS A <1.0 NEG AI (<1.0 NEG); SSB SJOGRENS B <1.0 NEG AI (<1.0 NEG)
[2024-06-01 01:27] LABS: CYCLIC CITRULLINATED PEPTIDE < 16 UNITS (<20)
== END ==
LOC: M LAB 16:13
PROVIDERS: ATTEND Physician Assistant
DX: S22.000S Wedge compression fracture of unspecified thoracic vertebra, sequela (principal); Z13.820 Encounter for screening for osteoporosis; M25.50 Pain in unspecified joint

== ENCOUNTER → 2024-11-29 | Outpatient (REF) | payer OTHER | LOC: M LAB REF 17:03 | PROVIDERS: ATTEND Physician Assistant | DX: J02.9 Acute pharyngitis, unspecified (principal) ==

== ENCOUNTER → 2024-11-30 | Outpatient (CLI) | payer OTHER ==
[2024-11-30 17:19] LABS: CHOLESTEROL RISK RATIO 3.34 (<5); HDL CHOLESTEROL 53.2 MG/DL (>40); LDL CHOLESTEROL 106.2 MG/DL (<100); NON-HDL-C 124.8 MG/DL
[2024-11-30 17:20] LABS: TOTAL 25(OH) VITAMIN D 19.2 NG/ML (20.0-100.0)
== END ==
LOC: M RAD 15:44
PROVIDERS: ATTEND Physician Assistant
DX: R76.8 Other specified abnormal immunological findings in serum (principal); E66.9 Obesity, unspecified; Z68.21 Body mass index [BMI] 21.0-21.9, adult; E55.9 Vitamin D deficiency, unspecified

== ENCOUNTER → 2025-01-26 | Outpatient (REF) | payer OTHER ==
[2025-01-26 21:22] LABS: Trichomonas vaginalis (AMP) POSITIVE (NEGATIVE)
[2025-01-26 21:59] LABS: GC DNA AMPLIFICATION NEGATIVE (NEGATIVE)
== END ==
LOC: M LAB REF 17:46
PROVIDERS: ATTEND Nurse Practitioner Family
DX: R30.0 Dysuria (principal); N89.8 Other specified noninflammatory disorders of vagina